=== PATIENT | female | born 1990 | race Two or more races ===

== ENCOUNTER 2016-03-28 19:05 | Emergency (ER) | payer MEDICAID, OTHER ==
[~2016-03-28] VITALS: Ht 154.9 cm; Wt 79.4 kg
[~2016-03-28 19:05] MED LIST: NOR10T; ONDA4TAB8
[2016-03-28 19:25] VITALS: BP 120/79
== END 2016-03-28 21:20 | disposition home or self-care (01) ==
LOC: ER 19:11
DX: J40 Bronchitis, not specified as acute or chronic (principal); R07.0 Pain in throat

== ENCOUNTER 2024-09-01 06:32 | Inpatient (IN) | payer MEDICAID, SELFPAY ==
[2024-09-01] VITALS (16 sets, daily range): BP systolic 110–140; BP diastolic 57–92; PULSE 74–92; RESP 16–18; TEMP 97.9–98.3; O2SAT 95–98
[~2024-09-01] VITALS: Ht 162.6 cm; Wt 95.3 kg
[~2024-09-01 06:32] MED LIST changes: +ONDA-101; -ONDA4TAB8
[2024-09-01] MEDS ORDERED: hydrALAZINE HCL 20 MG/ML VL IV PRN (06:45)
[2024-09-01] MEDS: hydrALAZINE HCL 20 MG/ML VL ONE (07:10)
[2024-09-01] MEDS ORDERED: LIDOCAINE 2%HCL (LOCAL ANESTH.) INJ 20ML MDV IJ PRN (07:15)
[2024-09-01] MEDS ORDERED: MORPHINE SULFATE INJ 2 MG/ml SYRG IV PRN (07:15)
[2024-09-01] MEDS ORDERED: NITROGLYCERIN 0.4 MG SL TAB SL PRN (07:15)
[2024-09-01] MEDS ORDERED: LACTATED RINGER'S 1,000 ML IV SCH (07:15)
[2024-09-01] MEDS: MAGNESIUM SULFATE 40MG/ML 1,000 ML IV ONE (07:30)
[2024-09-01] MEDS ORDERED: TERBUTALINE SULFATE 1 MG/ML 1ML VIAL SC PRN (07:45)
[2024-09-01 08:07] LABS: Hematocrit 37.6 % (36.0-46.0); Hemoglobin 12.9 g/dL (12.2-16.2); Mean Corpuscular Hemoglobin 27.5 pg (28.0-32.0); Mean Corpuscular Volume 80.5 fL (80.0-100.0); Nucleated Red Blood Cells % 0.0 %
[2024-09-01 08:14] LABS: Albumin 3.7 g/dL (3.2-4.8); Anion Gap 14 (5-15); BUN/Creatinine Ratio 14.7 (10.0-20.0); Blood Urea Nitrogen 11 mg/dL (9-23); Calcium 9.2 mg/dL (8.7-10.4); Glucose 90 mg/dL (74-106); Potassium 3.6 mmol/L (3.5-5.1); Sodium 138 mmol/L (136-145); Total Protein 6.5 g/dL (5.7-8.2)
[2024-09-01] MEDS: PENICILLIN G POT 5MIL/D5 50ML 50 ML IV ONE ×2 (08:14→12:49)
[2024-09-01 08:15] LABS: Bilirubin, Total 0.4 mg/dL (0.2-1.0)
--- NOTE | 2024-09-01 08:17 | DVH ---
CLINICAL HISTORY: contractions COMPARISON: None TECHNIQUE: biophysical profile was performed. Transabdominal sonographic images of the fetus we re obtained. FINDINGS: The fetus is in cephalic position. heart rate measures 124 BPM. Amniotic fluid index measures 9 cm. The placenta is posterior in position without visualized evidence for previa or abrupt ion demonstrated. BPP profile is an overall score of 8/8, with 2/2 points for breathing, with at least one episode of breathing over a 30 second duration during a 30 minute observation, 2/2 points for m ovements, with 3 or more discrete body or limb movements, 2/2 points for tone, with one or more episodes of extremity extension with return to flexion, or opening and closing of hand, and 2/ 2 points for amniotic fluid, with at least 1 pocket of amniotic fluid that measures 2 cm in 2 perpend icular planes. IMPRESSION: BPP score of 8/8.
[2024-09-01 08:18] LABS: Alanine Aminotransferase < 9 U/L (7-40); Alkaline Phosphatase 171 U/L (46-116); Carbon Dioxide 17 mmol/L (20-31); Chloride 107 mmol/L (98-107)
[2024-09-01 08:25] LABS: INR 0.86 (0.9-1.15); Partial Thromboplastin Time 27.3 SEC (24.5-34.5); Prothrombin Time 9.3 sec (9.3-11.8)
[2024-09-01 08:26] LABS: Urine Protein, UAD 3+ (Negative)
[2024-09-01 08:33] LABS: Uric Acid 7.4 mg/dL (3.1-7.8)
[2024-09-01 08:40] LABS: Amphetamine Screen, Urine Neg (NEGATIVE); Barbiturate Scree,Urine Neg (NEGATIVE); Benzodiazephine Screen, Urine Neg (NEGATIVE); Cannabinoid Screen, Urine Neg (NEGATIVE); Cocaine Screen, Urine Pos (NEGATIVE); Opiate Scree,Urine Neg (NEGATIVE); Phencyclidine Screen, Urine Neg (NEGATIVE); Protein, Urine 718.3 mg/dL (1-14)
--- NOTE | 2024-09-01 08:59 | LDN2 ---
Labor and Delivery Note Date 09/01/24 Age 34 2 Para 2 EDC 8-8 EGA 37wks Diagnosis chtn with superimposed preeclampsia,ama,37wks,limited care Vaginal Delivery: VTX Placenta: Spontaneous Sex: Female Apgars 8-9 Nuchal Cord Transected: No Amniotic Fluid: Clear Anesthesia xylocaine Episiotomy: No Extension: Yes (2nd degperineal lac ) Repaired with 2-0 chromic EBL 300ml Labs Blood Bank 09/01/24 07:25: Blood Type A POSITIVE Complications none Conditions stable Comments/Significant Med Brant spec exam no cxal lac Visit Coding OBGYN Date of Service: Sep 01, 2024 Billing Provider: BRANDEE DOVER DO HOTEL ROOM ATTENDANT Common Visit Codes: [id number] OBS CARE (HIGH) HOTEL ROOM ATTENDANT Procedure Codes: 46738-26- NON-STRESS TEST, 24215-BLH DELIVERY ONLY BRANDEE DOVER DO Sep 01, 2024 08:59
[2024-09-01] MEDS: LABETALOL HCL 200 MG TAB PO SCH ×2 (09:47→21:38)
[2024-09-01] MEDS ORDERED: ONDANSETRON HCL 4 MG/2 ML VIAL IV PRN (11:30)
[2024-09-01] MEDS: MAGNESIUM SULFATE 100 ML IV ONE (11:43)
[2024-09-01] MEDS: hydrALAZINE HCL 20 MG/ML VL IV PRN (11:48)
[2024-09-01] MEDS: LACT. RINGERS/OXYTOCIN 20UNITS 500 ML IV ONE ×2 (11:51→11:52)
[2024-09-01] MEDS: PENICILLIN G POTASSIUM 2,500,000 UNITS in D5W 5% 50 ML IV SCH (12:15)
[2024-09-01] MEDS: WITCH HAZEL-GLYCERIN PAD TOP PRN (13:53)
[2024-09-01] MEDS: DERMOPLAST 60ML BOTTLE TOP PRN (13:53)
[2024-09-01] MEDS: PHISODERM TOP SOLN 240ML BTL TOP PRN (13:53)
[2024-09-01] MEDS: ACETAMINOPHEN 325 MG TAB PO PRN (16:25)
[2024-09-01] MEDS: DOCUSATE SOD 100 MG CAP PO SCH (21:37)
[2024-09-01] MEDS: IBUPROFEN 600 MG TAB PO PRN (23:26)
[2024-09-02 03:15] VITALS: BP 121/65; PULSE 77; RESP 16; TEMP 97.7; O2SAT 96
--- NOTE | 2024-09-02 05:57 | DVHHP ---
ADMIT DATE: 09/01/2024 CHIEF COMPLAINT: Labor pain. HISTORY OF PRESENT ILLNESS: The patient is a 34-year-old 2 para 1 with EDC 09/19, estimated gestational age of 37 weeks, admitted for active labor. The patient was placed on labetalol for gestational hypertension by ____. We have no records. The patient presented at 8 cm with blood pressure of 200/100. The patient was started on ____. PAST MEDICAL HISTORY: Gestational hypertension. PAST SURGICAL HISTORY: None. SOCIAL HISTORY: None. FAMILY HISTORY: None. OBSTETRICAL/GYNECOLOGICAL HISTORY: One normal vaginal delivery. REVIEW OF SYSTEMS: Consistent with HPI. PHYSICAL EXAMINATION: VITAL SIGNS: Stable, afebrile. HEENT: Within normal limits. CARDIOVASCULAR: Regular rate and rhythm. LUNGS: Clear to auscultation. BREASTS: Symmetrical, no masses. ABDOMEN: Soft, gravid. PELVIC: 8, 90%, 0. EXTREMITIES: No clubbing, cyanosis, edema. IMPRESSION: * Active labor. * Gestational hypertension with superimposed preeclampsia. * Advanced maternal age. PLAN: Expectant vaginal delivery. Informed consent obtained. DO APRIL Calle/FIONA/VIRIDIANA TID: [id number] RECEIPT: [id number]
[2024-09-02 06:35] VITALS: BP 130/75; PULSE 82; RESP 16; TEMP 97.6; O2SAT 95
[2024-09-02 11:20] VITALS: BP 131/63; PULSE 83; RESP 16; TEMP 97.9; O2SAT 95
[2024-09-02 15:30] VITALS: BP 134/86; PULSE 97; RESP 18; TEMP 98.2; O2SAT 97
--- NOTE | 2024-09-02 16:45 | DVHPN2 ---
Progress Note Date Seen: Sep 02, 2024 Subjective S: bleeding is less, eating food without issues, denies lightheaded/dizziness, pain well controlled with oral medications, no concerns with urinating, passing flatus, no BM yet, ambulating well, formula feeding only vital signs Vital Sign Date Time Temp Pulse Resp B/P (MAP) Pulse Ox O2 Delivery O2 Flow Rate FiO2 09/02/24 15:30 98.2 97 18 134/86 (102) 97 98.2 09/02/24 06:35 Room Air Total Intake and Output 09/01/24 09/01/24 09/02/24 15:00 23:00 07:00 Output Total 550 ml 800 ml 250 ml Balance -550 ml -800 ml -250 ml medications Current Medications Medications Dose Ordered Sig/Jeffrey Route Start Time Stop Time Status Last Admin Dose Admin Hydralazine HCl 5 mg Q20MP PRN IV 09/01/24 06:45 Hydralazine HCl 10 mg Q20MP PRN IV 09/01/24 06:45 09/01/24 11:48 10 MG Lactated Ringer's 1,000 ml @ 125 mls/hr Q8H IV 09/01/24 07:15 Witch Ekaterina 1 pad PRN PRN TOP 09/01/24 07:15 09/01/24 13:53 1 PAD Sodium Lauryl Sulfate 240 ml PRN PRN TOP 09/01/24 07:15 09/01/24 13:53 240 ML Benzocaine 1 applic PRN PRN TOP 09/01/24 07:15 09/01/24 13:53 1 APPLIC Lidocaine HCl 20 ml ONCE PRN IJ 09/01/24 07:15 Nitroglycerin 0.4 mg Q5MINP PRN SL 09/01/24 07:15 Cancel Morphine Sulfate 2 mg Q30M PRN IV 09/01/24 07:15 Cancel Terbutaline Sulfate 0.25 mg ONCE PRN SC 09/01/24 07:45 Cancel Ibuprofen 600 mg Q6HP PRN PO 09/01/24 11:30 09/01/24 23:26 600 MG Acetaminophen 650 mg Q4HP PRN PO 09/01/24 11:30 09/01/24 16:25 650 MG Ondansetron HCl 4 mg Q4HP PRN IV 09/01/24 11:30 Docusate Sodium 200 mg HS PO 09/01/24 22:00 09/01/24 21:37 200 MG Labetalol HCl 100 mg Q12HR PO 09/01/24 22:00 09/02/24 10:16 100 MG laboratory and microbiology Laboratory Tests 09/01/24 07:25 Test 09/01/24 07:25 Range/Units Serum Glucose 90 74-106 mg/dL Objective O: VSS Chest: heart sounds normal and lung sounds clear bilaterally Abd: soft, non-tender, fundus at U/firm/midline, active bowel sounds, no rebound or guarding Perineum: sutures intact, edges well approximated, no erythema/edema noted Ext: Non-tender, 1+ BLE edema, 2+ BLE DTRs Lochia: minimal SW consult complete Laboratory Tests Test 09/01/24 07:25 09/01/24 08:13 09/01/24 10:46 09/01/24 11:15 Range/Units White Blood Count 18.4 H 4.4-10.8 10^3/uL Red Blood Count 4.67 4.0-5.20 10^6/uL Hemoglobin 12.9 12.2-16.2 g/dL Hematocrit 37.6 36.0-46.0 % Mean Corpuscular Volume 80.5 80.0-100.0 fL Mean Corpuscular Hemoglobin 27.5 L 28.0-32.0 pg Mean Corpuscular Hemoglobin Concent 34.1 32.0-36.0 g/dL Red Cell Distribution Width 14.6 H 11.8-14.3 % Platelet Count 377 140-450 10^3/uL Mean Platelet Volume 9.7 6.9-10.8 fL Neutrophils (%) (Auto) 75.4 37.0-80.0 % Lymphocytes (%) (Auto) 16.4 10.0-50.0 % Monocytes (%) (Auto) 6.9 0.0-12.0 % Eosinophils (%) (Auto) 0.2 0.0-7.0 % Basophils (%) (Auto) 1.1 0.0-2.0 % Neutrophils # (Auto) 13.9 H 1.6-8.6 10 ^3/uL Lymphocytes # (Auto) 3.0 0.4-5.4 10 ^3/uL Monocytes # (Auto) 1.3 0-1.3 10 ^3/uL Eosinophils # (Auto) 0 0-0.8 10 ^3/uL Basophils # (Auto) 0.2 0-0.2 10 ^3/uL Nucleated Red Blood Cells 0.0 % Prothrombin Time 9.3 9.3-11.8 sec Prothrombin Time INR 0.86 L 0.9-1.15 Activated Partial Thromboplast Time 27.3 24.5-34.5 SEC Sodium Level 138 136-145 mmol/L Potassium Level 3.6 3.5-5.1 mmol/L Chloride Level 107 98-107 mmol/L Carbon Dioxide Level 17 L 20-31 mmol/L Anion Gap 14 5-15 Blood Urea Nitrogen 11 9-23 mg/dL Creatinine 0.75 0.550-1.02 mg/dL Glomerular Filtration Rate Calc 106 >90 mL/min BUN/Creatinine Ratio 14.7 10.0-20.0 Serum Glucose 90 74-106 mg/dL Uric Acid 7.4 3.1-7.8 mg/dL Calcium Level 9.2 8.7-10.4 mg/dL Total Bilirubin 0.4 0.2-1.0 mg/dL Aspartate Amino Transferase (AST) 27 13-40 U/L Alanine Aminotransferase (ALT) < 9 7-40 U/L Alkaline Phosphatase 171 H 46-116 U/L Total Protein 6.5 5.7-8.2 g/dL Albumin 3.7 3.2-4.8 g/dL Treponema pallidum Antibody Non-reactive Negative Hepatitis C Antibody Negative Negative Urine Color Yellow Yellow Urine Clarity Clear Clear Urine pH 6.0 5.0-9.0 Urine Specific [place] 1.025 1.001-1.035 Urine Protein 3+ H Negative Urine Ketones Negative Negative Urine Blood 1+ H Negative /uL Urine Nitrite Negative Negative Urine Bilirubin Negative Negative Urine Urobilinogen Normal Negative mg/dL Urine Leukocyte Esterase Negative Negative /uL Urine RBC 1 0 - 4 /hpf Urine Microscopic WBC 2 0-5 /HPF Urine Squamous Epithelial Cells Few <5 /hpf Urine Bacteria None seen None Seen /hpf Urine Hyaline Casts Few 0 - 2 /lpf Urine Mucus Few None Seen Urine Creatinine 136.06 H 30.0-125.0 mg/dL Urine Protein/Creatinine Ratio 5.28 Urine Glucose Normal Normal mg/dL Urine Total Protein 718.3 H 1-14 mg/dL Urine Opiates Screen Neg NEGATIVE Urine Fentanyl Screen Neg NEGATIVE Urine Barbiturates Screen Neg NEGATIVE Urine Phencyclidine Screen Neg NEGATIVE Urine Amphetamines Screen Neg NEGATIVE Urine Benzodiazepines Screen Neg NEGATIVE Urine Cocaine Screen Pos NEGATIVE Urine Cannabinoids Screen Neg NEGATIVE Chlamydia trachomatis (JANIS) Pending Neisseria gonorrhoeae (JANIS) Pending Magnesium Level 3.2 H 1.6-2.6 mg/dL Test 09/01/24 11:45 09/01/24 18:10 09/01/24 23:06 09/02/24 16:55 Range/Units Magnesium Level 4.5 #*H 5.9 #*H 4.5 #*H 1.6-2.6 mg/dL White Blood Count 17.9 H 4.4-10.8 10^3/uL Red Blood Count 3.44 L 4.0-5.20 10^6/uL Hemoglobin 9.5 #L 12.2-16.2 g/dL Hematocrit 28.3 #L 36.0-46.0 % Mean Corpuscular Volume 82.3 80.0-100.0 fL Mean Corpuscular Hemoglobin 27.6 L 28.0-32.0 pg Mean Corpuscular Hemoglobin Concent 33.5 32.0-36.0 g/dL Red Cell Distribution Width 15.1 H 11.8-14.3 % Platelet Count 295 140-450 10^3/uL Mean Platelet Volume 9.0 6.9-10.8 fL Neutrophils (%) (Auto) 65.7 37.0-80.0 % Lymphocytes (%) (Auto) 25.6 10.0-50.0 % Monocytes (%) (Auto) 7.6 0.0-12.0 % Eosinophils (%) (Auto) 0.9 0.0-7.0 % Basophils (%) (Auto) 0.2 0.0-2.0 % Neutrophils # (Auto) 11.7 H 1.6-8.6 10 ^3/uL Lymphocytes # (Auto) 4.6 0.4-5.4 10 ^3/uL Monocytes # (Auto) 1.4 H 0-1.3 10 ^3/uL Eosinophils # (Auto) 0.2 0-0.8 10 ^3/uL Basophils # (Auto) 0 0-0.2 10 ^3/uL Nucleated Red Blood Cells 0.1 % Vital Signs Date Time Temp Pulse Resp B/P (MAP) Pulse Ox O2 Delivery O2 Flow Rate FiO2 09/02/24 15:30 98.2 97 18 134/86 (102) 97 98.2 09/02/24 06:35 Room Air Problems(with codes): (1) Cocaine use (2) (normal spontaneous vaginal delivery) (3) Second degree perineal laceration during delivery (4) Pre-eclampsia superimposed on chronic hypertension Assessment/Plan A: 34yo now PPD#1 s/p Second degree perineal laceration Chronic HTN with superimposed preeclampsia Cocaine use P: Continue with routine PP care Dr. Phillips consulted, wants pt to continue taking labetalol 100mg PO BID at home too for chronic HTN. Rx sent. Plan discussed with: Patient Visit Coding OBGYN Date of Service: Sep 02, 2024 Billing Provider: GRAHAM MCKEE CNM STAMP MAKER Common Visit Codes: [id number] INP/OBS CARE(HIGH) GRAHAM MCKEE CNM Sep 02, 2024 16:45
[2024-09-02 17:44] LABS: Hematocrit 28.3 % (36.0-46.0); Hemoglobin 9.5 g/dL (12.2-16.2); Mean Corpuscular Hemoglobin 27.6 pg (28.0-32.0); Mean Corpuscular Volume 82.3 fL (80.0-100.0); Nucleated Red Blood Cells % 0.1 %
[2024-09-02] MEDS ORDERED: LABE200T10 PO (18:11)
[2024-09-02] MEDS ORDERED: FER325T PO (18:11)
[2024-09-02] MEDS ORDERED: DOCU-265 PO (18:11)
[2024-09-02] MEDS ORDERED: IBU600T PO (18:11)
[2024-09-02 19:17] VITALS: BP 157/75; PULSE 99; RESP 17; TEMP 98.1; O2SAT 99
[2024-09-02] MEDS: LABETALOL HCL 200 MG TAB PO SCH (21:15)
[2024-09-02 23:00] VITALS: BP 134/77; PULSE 82; RESP 16; TEMP 97.6; O2SAT 97
--- NOTE | 2024-09-03 00:18 | DVHDS2 ---
Obstetrics Discharge Summary Obstetrics Discharge Summary Date of Admission: Sep 01, 2024 Date of Discharge: Sep 03, 2024 Reason For Admission: Onset of Labor Procedures: NST, Ultrasound, Mgmt of Obstetrics Compli (cocaine use in and CHTN superimposed preeclampsia) Intrapartum Procedures: Spontaneous vaginal deliv Procedures: Hct/date: (09/02/24), Hgb/date: (09/02/24) Operative Complicat: Laceration (second degree perineal) Discharge Diagnosis: Term -Delivered, Preeclampsia (superimposed with chronic HTN) Discharge Information: Activity (as tolerated, no heavy lifting and nothing in the vagina for 6 weeks), Diet (Routine), Medications (Rx sent), Instructions (Routine), Discharge to (Home), Accompanied by (family), Discarge date (09/03/24) Visit Coding OBGYN Date of Service: Sep 03, 2024 Billing Provider: GRAHAM MCKEE CNM HOME CARE PROVIDER Common Visit Codes: 62671-ABL/OBS DISCH DAY <30MIN GRAHAM MCKEE CNM Sep 03, 2024 00:18
--- NOTE | 2024-09-03 00:18 | DVHPN2 ---
Progress Note Date Seen: Sep 03, 2024 Subjective S: bleeding is less, eating food without issues, denies lightheaded/dizziness, pain well controlled with oral medications, no concerns with urinating, passing flatus, no BM yet, ambulating well, formula feeding only vital signs Vital Sign Date Time Temp Pulse Resp B/P (MAP) Pulse Ox O2 Delivery O2 Flow Rate FiO2 09/02/24 21:15 96 165/93 09/02/24 19:17 98.1 17 99 98.1 09/02/24 06:35 Room Air Total Intake and Output 09/02/24 09/02/24 09/03/24 15:00 23:00 07:00 Output Total 800 ml 300 ml Balance -800 ml -300 ml medications Current Medications Medications Dose Ordered Sig/Jeffrey Route Start Time Stop Time Status Last Admin Dose Admin Hydralazine HCl 5 mg Q20MP PRN IV 09/01/24 06:45 Hydralazine HCl 10 mg Q20MP PRN IV 09/01/24 06:45 09/01/24 11:48 10 MG Lactated Ringer's 1,000 ml @ 125 mls/hr Q8H IV 09/01/24 07:15 Witch Ekaterina 1 pad PRN PRN TOP 09/01/24 07:15 09/01/24 13:53 1 PAD Sodium Lauryl Sulfate 240 ml PRN PRN TOP 09/01/24 07:15 09/01/24 13:53 240 ML Benzocaine 1 applic PRN PRN TOP 09/01/24 07:15 09/01/24 13:53 1 APPLIC Lidocaine HCl 20 ml ONCE PRN IJ 09/01/24 07:15 Nitroglycerin 0.4 mg Q5MINP PRN SL 09/01/24 07:15 Cancel Morphine Sulfate 2 mg Q30M PRN IV 09/01/24 07:15 Cancel Terbutaline Sulfate 0.25 mg ONCE PRN SC 09/01/24 07:45 Cancel Ibuprofen 600 mg Q6HP PRN PO 09/01/24 11:30 09/01/24 23:26 600 MG Acetaminophen 650 mg Q4HP PRN PO 09/01/24 11:30 09/02/24 21:51 650 MG Ondansetron HCl 4 mg Q4HP PRN IV 09/01/24 11:30 Docusate Sodium 200 mg HS PO 09/01/24 22:00 09/01/24 21:37 200 MG Labetalol HCl 300 mg Q12H PO 09/02/24 21:00 09/02/24 21:15 300 MG laboratory and microbiology Laboratory Tests 09/02/24 16:55 09/01/24 07:25 Test 09/01/24 07:25 Range/Units Serum Glucose 90 74-106 mg/dL Objective O: VSS Chest: heart sounds normal and lung sounds clear bilaterally Abd: soft, non-tender, fundus at U/firm/midline, active bowel sounds, no rebound or guarding Perineum: sutures intact, edges well approximated, no erythema/edema noted Ext: Non-tender, No edema, 2+ BLE DTRs Lochia: minimal See lab results SW consult complete Problems(with codes): (1) Pre-eclampsia superimposed on chronic hypertension (2) Precipitous drop in hematocrit (3) (normal spontaneous vaginal delivery) (4) Second degree perineal laceration during delivery (5) Cocaine use Assessment/Plan A: 34yo now PPD#2 s/p Second degree perineal laceration Cocaine use Anemia Rh+ Rubella Immune Formula feeding P: D/C home today Rx sent to pharmacy precautions and preeclampsia warning signs reviewed F/U with [facility] office in 2 weeks Plan discussed with: Patient Visit Coding OBGYN Date of Service: Sep 03, 2024 Billing Provider: GRAHAM MCKEE CNM LEGAL ASSISTANT Common Visit Codes: [id number] INP/OBS CARE(HIGH) GRAHAM MCKEE CNM Sep 03, 2024 00:18
[2024-09-03 03:09] VITALS: BP 146/89; PULSE 85; RESP 16; TEMP 97.7; O2SAT 96
[2024-09-03 06:07] LABS: Chlamydia Trachomatis, NAA Negative (Negative); Neisseria gonorrhoeae, NAA Negative (Negative)
[2024-09-03 07:00] VITALS: BP 185/84; PULSE 90; RESP 16; TEMP 98.8; O2SAT 96
[2024-09-03] MEDS ORDERED: LABE300T5 PO (09:32)
[2024-09-03 11:00] VITALS: BP 157/77; PULSE 82; RESP 16; TEMP 98.6; O2SAT 96
== END 2024-09-03 15:17 | disposition home or self-care (01) | DRG 806 ==
LOC: LDRP 06:32 → OBSVTOIN 07:02 → LDRP 07:04
PROVIDERS: ADMIT Obstetrics & Gynecology; ATTEND Obstetrics & Gynecology
PROC: 10E0XZZ Delivery of Products of Conception, External Approach (ICD-10-PCS; principal; 2024-09-01)
PROC: 0KQM0ZZ Repair Perineum Muscle, Open Approach (ICD-10-PCS; 2024-09-01)
DX: O11.4 Pre-existing hypertension with pre-eclampsia, complicating childbirth (principal); R71.0 Precipitous drop in hematocrit; Z37.0 Single live birth; Z3A.37 37 weeks gestation of pregnancy; O70.1 Second degree perineal laceration during delivery; F14.90 Cocaine use, unspecified, uncomplicated; O99.324 Drug use complicating childbirth
CPT/HCPCS: 36415; 59409; 76819; 80053; 80307; 81001; 82570; 83735; 84156; 84550; 85025; 85610; 85730; 86780; 86803; 86850; 86900; 86901; 94760; 94762; 96360; 96361; 96365; 96366; 96374; 96375; G0378; J2540; J2590; J7060

== ENCOUNTER 2024-09-05 09:48 | Inpatient (IN) | payer SELFPAY ==
[~2024-09-05] VITALS: Ht 154.9 cm; Wt 98.0 kg
[~2024-09-05 09:48] MED LIST changes: +DOCU-265 PO; +FER325T PO; +IBU600T PO; +LABE300T5 PO; -NOR10T; -ONDA-101
--- NOTE | 2024-09-05 10:37 | ED.PDOC ---
SOB-HPI HPI Comments This is a 34 year old female presenting to the ED with chief complaint of SOB. Patient reports that she had just delivered her on Sunday, but since then she has been experiencing SOB. Patient relays that her SOB worsened yesterday. Patient states she has history of preeclampsia and is . Patient denies any chest pain, cough, fever, chills, dizziness, or N/V. Chief Complaint: Shortness of Breath Time Seen by MD: 10:34 Primary Care Provider: NONE Reviewed notes: Nurses Notes, Medications, Allergies Information Source: Patient Mode of Arrival: Ambulatory Severity: Moderate Timing: Days Duration: Since onset Context: At Rest PE Risk Factors: None History of: None Prehospital treatment: None Modifying Factors: Nothing Associated Signs and Symptoms: None Past Medical History PAST MEDICAL HISTORY: Denies Surgical History: Denies all surgeries ICE BAG ASSEMBLER History: No Pertinent ICE BAG ASSEMBLER History 2 Para 2 Family History Family History: Reviewed,noncontributory to illness Social History Smoker: Non-Smoker Alcohol: Denies ETOH Use Drugs: Denies Drug Use Lives In: Home Constitutional: denies: chills, diaphoresis, fatigue, fever, malaise, sweats, weakness, others EENTM: denies: blurred vision, double vision, ear bleeding, ear discharge, ear drainage, ear pain, ear ringing, eye pain, eye redness, hearing loss, mouth pain, mouth swelling, nasal discharge, nose bleeding, nose congestion, nose pain, photophobia, tearing, throat pain, throat swelling, voice changes, others Respiratory: reports: shortness of breath; denies: cough, hemoptysis, orthopnea, SOB at rest, SOB with excertion, stridor, wheezing, others Cardiovascular: denies: chest pain, dizzy spells, diaphoresis, Dyspnea on e xertion, edema, irregular heart beat, left arm pain, lightheadedness, palpitations, PND, syncope, others Gastrointestinal: denies: abdomen distended, abdominal pain, blood streaked bowels, constipated, diarrhea, dysphagia, difficulty swallowing, hematemesis, melena, nausea, poor appetite, poor fluid intake, rectal bleeding, rectal pain, vomiting, others Genitourinary: denies: abnormal vagina bleeding, burning, dyspareunia, dysuria, flank pain, frequency, hematuria, incontinence, pain, , vagina discharge, urgency, others Neurological: denies: dizziness, fainting, headache, left sided numbness, left sided weakness, numbness, paresthesia, pre-existing deficit, right sided numbness, right sided weakness, seizure, speech problems, tingling, tremors, weakness, others Musculoskeletal: denies: back pain, gout, joint pain, joint swelling, muscle pain, muscle stiffness, neck pain, others Integumetry: denies: bruises, change in color, change in hair/nails, dryness, laceration, lesions, lumps, rash, wounds, others Allergic/Immunocompromised: denies: Difficulty Healing, Frequent Infections, Hives, Itching, others Hematologic/Lymphatic: denies: anemia, blood clots, easy bleeding, easy bruising, swollen glands, others Endocrine: denies: excessive hunger, excessive sweating, excessive thirst, excessive urination, flushing, intolerance to cold, intolerance to heat, unexplained weight gain, unexplained weight loss, others Psychiatric: denies: anxiety, bipolar disorder, depression, hopeless, panic disorder, schizophrenia, sleepless, suicidal, others All Other Systems: Reviewed and Negative Physical Exam General Appearance: Moderate Distress, Normal HEENT: Normal ENT Inspection, Pharynx Normal, TMs Normal Neck: Full Range of Motion, Non-Tender, Normal, Normal Inspection Respiratory: Chest Non-Tender, No Accessory Muscle Use, Other (Coarse breath sounds) Cardiovascular: No Edema, No JVD, No Murmur, No Gallop, Normal Peripheral Pulses, Regular Rate/Rhythm Breast Exam: Deferred Gastrointestinal: No Organomegaly, Non Tender, No Pulsatile Mass, Normal Bowel Sounds, Soft Genitalia: Deferred Pelvic: Deferred Rectal: Deferred Extremities: No calf tenderness, Normal capillary refill, Normal inspection, Normal range of motion, Non-tender, No pedal edema Musculoskeletal : Apperance: Normal Neurologic: Alert, inpatient pharmacist II-XII nml as Tested, No Motor Deficits, Normal Affect, Normal Mood, No Sensory Deficits Cerebellar Function: NOT DONE Reflexes: NOT DONE Skin: Dry, Normal Color, Warm Peripheral Pulses: 3+ Radial (R), 3+ Radial (L) Lymphatic: No Adenopathy Was a procedure done? Was a procedure done?: No Differential Dx Differential Diagnosis: Anxiety, Asthma, Bronchitis, CHF, COPD, Pneumonia, Pulmonary Embolism, Respiratory Distress X-Ray, Labs, Meds, VS Vital Signs Date Time Temp Pulse Resp B/P (MAP) Pulse Ox O2 Delivery O2 Flow Rate FiO2 09/05/24 10:51 97 173/95 09/05/24 10:50 18 96 Nasal Cannula* 2 28 09/05/24 10:45 97.9 96 29 173/95 (121) 95 97.9 09/05/24 10:07 98.2 100 16 164/110 (128) 99 98.2 Lab Test 09/05/24 10:33 Range/Units White Blood Count Pending Red Blood Count Pending Hemoglobin Pending Hematocrit Pending Mean Corpuscular Volume Pending Mean Corpuscular Hemoglobin Pending Mean Corpuscular Hemoglobin Concent Pending Red Cell Distribution Width Pending Platelet Count Pending Mean Platelet Volume Pending Neutrophils (%) (Auto) Pending Lymphocytes (%) (Auto) Pending Monocytes (%) (Auto) Pending Basophils (%) (Auto) Pending Neutrophils # (Auto) Pending Lymphocytes # (Auto) Pending Monocytes # (Auto) Pending D-Dimer, Quantitative Pending Sodium Level Pending Potassium Level Pending Chloride Level Pending Carbon Dioxide Level Pending Anion Gap Pending Blood Urea Nitrogen Pending Creatinine Pending Glomerular Filtration Rate Calc Pending BUN/Creatinine Ratio Pending Serum Glucose Pending Calcium Level Pending Current Medications Medications (Trade) Dose Ordered Sig/Jeffrey Route Start Time Stop Time Status Last Admin Ceftriaxone Sodium 50 ml @ 100 mls/hr ONCE ONCE IV 09/05/24 10:30 09/05/24 10:59 DC 09/05/24 10:50 Albuterol (Ventolin Medneb) 5 mg ONCE ONCE NEB 09/05/24 10:30 09/05/24 10:33 DC 09/05/24 10:49 Ipratropium [place] (Atrovent Medneb) 0.5 mg ONCE ONCE NEB 09/05/24 10:30 09/05/24 10:33 DC 09/05/24 10:49 Labetalol HCl (Labetalol HCl) 10 mg ONCE ONCE IV 09/05/24 10:45 09/05/24 10:46 DC 09/05/24 10:51 Patient alert. Complaining of shortness a breath. Chest x-ray reviewed does show pneumonia. Vitals stable. Was given breathing treatment. Placed on oxygen. Was given Rocephin. Was given azithromycin. Blood pressure elevated. Was given labetalol. Recently gave . Explained to the patient. Continue monitoring. Chest x-ray reviewed does show CHF with pneumonia. 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 Time of 1ST Reevaluation: 11:34 Reevaluation 1ST: Unchanged Patient Education/Counseling: Diagnosis, Treatment Family Education/Counseling: Diagnosis, Treatment SEPSIS Sepsis Screen Date sepsis recognized/suspect: Sep 05, 2024 Time Sepsis recognized/suspect: 953 Recent Procedure: No On Antibiotic Therapy: No Respiratory Rate >20: No Heart Rate >90: No Temp<36 C (96.8 F) or >38.3 C: No SBP <90 or MAP <65 mmHG: No New Acute Mental Status Change: No Is the patient on CPAP, BIPAP,: No Physician Orders Complete Blood Count (09/05/24 10:21) Chest Portable (09/05/24 10:21) Urinalysis (09/05/24 10:21) Basic Metabolic Panel (09/05/24 10:21) Azithromycin 500mg/ 250ml (Zithromax 50 (09/05/24 10:30) D-Dimer (09/05/24 10:30) Furosemide Injection (Lasix Injection) (09/05/24 11:30) Vital Signs Date Time Temp Pulse Resp B/P (MAP) Pulse Ox O2 Delivery O2 Flow Rate FiO2 09/05/24 10:51 97 173/95 09/05/24 10:50 18 96 Nasal Cannula* 2 28 09/05/24 10:45 97.9 96 29 173/95 (121) 95 97.9 09/05/24 10:07 98.2 100 16 164/110 (128) 99 98.2 Laboratory Tests Test 09/05/24 10:33 White Blood Count Pending Medications Medications Dose Ordered Sig/Jeffrey Route Start Time Stop Time Status Last Admin Dose Admin Albuterol 5 mg ONCE ONCE NEB 09/05/24 10:30 09/05/24 10:33 DC 09/05/24 10:49 Ceftriaxone Sodium 50 ml @ 100 mls/hr ONCE ONCE IV 09/05/24 10:30 09/05/24 10:59 DC 09/05/24 10:50 Ipratropium [place] 0.5 mg ONCE ONCE NEB 09/05/24 10:30 09/05/24 10:33 DC 09/05/24 10:49 Labetalol HCl 10 mg ONCE ONCE IV 09/05/24 10:45 09/05/24 10:46 DC 09/05/24 10:51 Departure 1 Departure Time of Disposition: 11:16 Impression: Primary Impression: Acute respiratory distress Additional Impressions: Pneumonia Qualified Codes: J18.9 - Pneumonia, unspecified organism CHF (congestive heart failure) Qualified Codes: I50.9 - Heart failure, unspecified Disposition: 09 ADMITTED INPATIENT Admit to: Med Surg Condition: Guarded Critical Care Note Critical Care Time?: Yes (90 min-critical care time only) Stability Stability form required: No Heart Score Heart Score: Heart Score Response (Comments) Value History N/A 0 EKG N/A 0 Age N/A 0 Risk Factors N/A 0 Troponin N/A 0 Total 0 I personally scribed for ABBY DA SILVA MD ([email or web address]) on 09/05/24 at 10:37. Electronically submitted by Markos Torres ([email or web address]). ABBY DA SILVA MD Sep 05, 2024 10:37
[2024-09-05 10:45] VITALS: PULSE 96; RESP 28; O2SAT 95
[2024-09-05] MEDS: ALBUTEROL SULF 2.5 MG/0.5ML(0.5%) NEB SOLN NEB ONE (10:49)
[2024-09-05] MEDS: IPRATROPIUM BROM 0.5 MG/2.5ML INH SOL NEB ONE (10:49)
--- NOTE | 2024-09-05 10:49 | DVH ---
INDICATION: sob TECHNIQUE: Frontal view of the chest. COMPARISON: None FINDINGS: Cardiomegaly with CHF. There is no evidence of pleural disease. The lungs are clear. The bony str uctures of the chest are intact without fracture. IMPRESSION: 1. Cardiomegaly with CHF.
[2024-09-05] MEDS: cefTRIAXone 1GM/50ML D5W 50 ML IV ONE ×2 (10:50→17:45)
[2024-09-05] MEDS: LABETALOL HCL 20 MG/4 ML VL IV ONE ×2 (10:51→16:45)
[2024-09-05 11:26] LABS: Hematocrit 28.4 % (36.0-46.0); Hemoglobin 9.6 g/dL (12.2-16.2); Mean Corpuscular Hemoglobin 27.6 pg (28.0-32.0); Mean Corpuscular Volume 81.8 fL (80.0-100.0); Nucleated Red Blood Cells % 0.0 %
[2024-09-05 11:34] LABS: Potassium 4.2 mmol/L (3.5-5.1); Sodium 140 mmol/L (136-145)
[2024-09-05 11:35] LABS: Anion Gap 11 (5-15); Calcium 8.9 mg/dL (8.7-10.4); Carbon Dioxide 22 mmol/L (20-31)
[2024-09-05 11:40] LABS: BUN/Creatinine Ratio 17.6 (10.0-20.0); Blood Urea Nitrogen 13 mg/dL (9-23); Chloride 107 mmol/L (98-107); Glucose 89 mg/dL (74-106)
[2024-09-05] MEDS: FUROSEMIDE 20 MG/2 ML VIAL IV ONE (11:55)
[2024-09-05] MEDS: AZITHROMYCIN 500MG/ 250ML 250 ML IV ONE (11:59)
[2024-09-05] MEDS: LORazepam 2MG/ML-1ML VIAL IV ONE ×2 (12:31→17:30)
[2024-09-05 13:24] LABS: Urine Protein, UAD Negative (Negative)
[2024-09-05] MEDS ORDERED: NITROGLYCERIN 0.4 MG SL TAB SL PRN (16:45)
[2024-09-05] MEDS: IOHEXOL 350 MG/ML 100ML IJ ONE (16:59)
[2024-09-05 17:28] LABS: Alanine Aminotransferase 34 U/L (7-40); Albumin 3.9 g/dL (3.2-4.8); Alkaline Phosphatase 115 U/L (46-116); Bilirubin, Total 0.3 mg/dL (0.2-1.0); Total Protein 6.2 g/dL (5.7-8.2)
[2024-09-05 17:31] LABS: Bilirubin, Direct < 0.1 mg/dL (<0.3)
[2024-09-05 17:31] LABS: Amphetamine Screen, Urine Neg (NEGATIVE); Barbiturate Scree,Urine Neg (NEGATIVE); Benzodiazephine Screen, Urine Neg (NEGATIVE); Cannabinoid Screen, Urine Neg (NEGATIVE); Cocaine Screen, Urine Neg (NEGATIVE); Opiate Scree,Urine Neg (NEGATIVE); Phencyclidine Screen, Urine Neg (NEGATIVE)
[2024-09-05] MEDS ORDERED: LABETALOL INJECTION 250 MG in SODIUM CHL 0.9% 200 ML IV ONE (17:45)
--- NOTE | 2024-09-05 18:10 | DVHHPRES ---
History of Present Illness Resident Creating Document: DARIAN TOMPKINS RESIDENT History of Present Illness 34-year-old female with obesity , history of preeclampsia, day 5 post following of a healthy baby on Sunday (09/01/2024), comes to the ER with complaints of shortness of breath since last 3 days. Shortness of breaths increased on lying down, it starts while resting and since on exertion. She is experiencing dry cough with minimal phlegm for the same duration. She reports having 2 episodes of blood mixed cough since her symptoms started. Developed fatigue for the same duration to the point that she was not able to carry her . She is not breast-feeding. She reports having preeclampsia during , for which she was taking labetalol. She denies any recent travel, sick contacts. Denies any chest pain, fever chills, abdominal pain, urinary symptoms or any other complaints today. Past medical history: Hypertension on labetalol Past surgical history: None Family History: Nothing significant nursing associate: 2 NVDs,1 . Day 5 . Allergy: Morphine Smoking history: None Drug: Never Alcohol: Occasionally, last drink was 9 months ago. Home medications: Labetalol 300 mg b.i.d., ibuprofen as needed, ferrous sulfate. Review of Systems Review of Systems The patient was seen and examined at the bedside. She reports having shortness of breath, cough, fatigue. Rest of the ROS is negative Allergies: Coded Allergies: Hydromorphone (Verified Allergy, Mild, VERY MILD ITCHING ON ARMS AND ABDOMEN AFTER ADMINISTRATION, 05/14/10) Medications Current Medications Medications Dose Ordered Sig/Jeffrey Route Start Time Stop Time Status Last Admin Dose Admin Sodium Chloride 10 ml Q8HR IV 09/05/24 22:00 UNV Nitroglycerin 0.4 mg Q5MINP PRN SL 09/05/24 16:45 UNV Furosemide 40 mg BIDD IV 09/06/24 06:00 UNV Ceftriaxone Sodium 50 ml @ 100 mls/hr DAILY@09 IV 09/06/24 09:00 UNV Nitroglycerin 250 ml @ 1.5 mls/hr Q24H IV 09/05/24 18:00 UNV Exam Vital Signs Vital Signs Date Time Temp Pulse Resp B/P (MAP) Pulse Ox O2 Delivery O2 Flow Rate FiO2 09/05/24 16:45 99 191/119 09/05/24 16:02 14 95 09/05/24 10:50 Nasal Cannula* 2 28 09/05/24 10:45 97.9 97.9 Exam Pt is lying on bed General Appearance: Morbid obesity, Alert, Oriented X3, Cooperative, Mild distress HEENT: Nasal cannula with [address] Atraumatic, Mucous membranes m oist/pink Respiratory: Bilateral crackles present, Normal air movement, No added sounds Cardiovascular: JVD present, Regular rate, Normal S1, Normal S2, No murmurs Abdominal/ : Active bowel sounds, Soft, no distention, no tenderness Extremities: 1+edema, Normal pulses, No tenderness/swelling PV exam: Normal lochia serosa present, no active bleeding. No vaginal edema or infection. Skin: No Significant rash, except past surgical scars Neuro: Normal speech, sensorimotor deficits none Psych/Mental Status: Mental status NL, Mood NL Nurse was there as horizontal drill operator during examination Labs/Xrays Labs Test 09/05/24 12:49 09/05/24 12:46 09/05/24 10:33 09/05/24 10:30 Range/Units Urine Color Colorless Yellow Urine Clarity Clear Clear Urine pH 5.5 5.0-9.0 Urine Specific [place] 1.005 1.001-1.035 Urine Protein Negative Negative Urine Ketones Negative Negative Urine Blood 3+ H Negative /uL Urine Nitrite Negative Negative Urine Bilirubin Negative Negative Urine Urobilinogen Normal Negative mg/dL Urine Leukocyte Esterase 2+ Negative /uL Urine RBC 64 0 - 4 /hpf Urine Microscopic WBC 5 0-5 /HPF Urine Squamous Epithelial Cells Few <5 /hpf Urine Bacteria None seen None Seen /hpf Urine Glucose Normal Normal mg/dL Urine Opiates Screen Neg NEGATIVE Urine Fentanyl Screen Neg NEGATIVE Urine Barbiturates Screen Neg NEGATIVE Urine Phencyclidine Screen Neg NEGATIVE Urine Amphetamines Screen Neg NEGATIVE Urine Benzodiazepines Screen Neg NEGATIVE Urine Cocaine Screen Neg NEGATIVE Urine Cannabinoids Screen Neg NEGATIVE White Blood Count 12.3 #H 4.4-10.8 10^3/uL Red Blood Count 3.47 L 4.0-5.20 10^6/uL Hemoglobin 9.6 L 12.2-16.2 g/dL Hematocrit 28.4 L 36.0-46.0 % Mean Corpuscular Volume 81.8 80.0-100.0 fL Mean Corpuscular Hemoglobin 27.6 L 28.0-32.0 pg Mean Corpuscular Hemoglobin Concent 33.8 32.0-36.0 g/dL Red Cell Distribution Width 14.8 H 11.8-14.3 % Platelet Count 394 140-450 10^3/uL Mean Platelet Volume 8.5 6.9-10.8 fL Neutrophils (%) (Auto) 73.8 37.0-80.0 % Lymphocytes (%) (Auto) 19.3 10.0-50.0 % Monocytes (%) (Auto) 5.7 0.0-12.0 % Eosinophils (%) (Auto) 1.0 0.0-7.0 % Basophils (%) (Auto) 0.2 0.0-2.0 % Neutrophils # (Auto) 9.1 H 1.6-8.6 10 ^3/uL Lymphocytes # (Auto) 2.4 0.4-5.4 10 ^3/uL Monocytes # (Auto) 0.7 0-1.3 10 ^3/uL Eosinophils # (Auto) 0.1 0-0.8 10 ^3/uL Basophils # (Auto) 0 0-0.2 10 ^3/uL Nucleated Red Blood Cells 0.0 % D-Dimer, Quantitative 3.68 H 0.0-0.49 mg/L FEU Sodium Level 140 136-145 mmol/L Potassium Level 4.2 3.5-5.1 mmol/L Chloride Level 107 98-107 mmol/L Carbon Dioxide Level 22 20-31 mmol/L Anion Gap 11 5-15 Blood Urea Nitrogen 13 9-23 mg/dL Creatinine 0.74 0.550-1.02 mg/dL Glomerular Filtration Rate Calc 107 >90 mL/min BUN/Creatinine Ratio 17.6 10.0-20.0 Serum Glucose 89 74-106 mg/dL Calcium Level 8.9 8.7-10.4 mg/dL Total Bilirubin 0.3 0.2-1.0 mg/dL Direct Bilirubin < 0.1 <0.3 mg/dL Aspartate Amino Transferase (AST) 50 H 13-40 U/L Alanine Aminotransferase (ALT) 34 7-40 U/L Alkaline Phosphatase 115 46-116 U/L Total Protein 6.2 5.7-8.2 g/dL Albumin 3.9 3.2-4.8 g/dL B-Type Natriuretic Peptide 460.06 0-100 pg/mL SEPSIS Sepsis Screen Date sepsis recognized/suspect: Sep 05, 2024 Time Sepsis recognized/suspect: 1315 Recent Procedure: No On Antibiotic Therapy: Yes Respiratory Rate >20: Yes Heart Rate >90: No Temp<36 C (96.8 F) or >38.3 C: No SBP <90 or MAP <65 mmHG: No New Acute Mental Status Change: No Is the patient on CPAP, BIPAP,: No Physician Orders Chest Portable (09/05/24 10:21) Drug Screen (09/05/24 16:22) Admit (09/05/24 16:42) Allergies (09/05/24 16:42) Code Status (09/05/24 16:42) Sodium Chloride Lock (Saline Lock Ns) (09/05/24 22:00) Oxygen Per Hour (09/05/24 16:42) Complete Blood Count (09/06/24 04:00) Comprehensive Metabolic Panel (09/06/24 04:00) Npo (Nothing By Mouth) Diet (09/05/24 Dinner) Echo 2d Mode Cardiac Dop (09/05/24 16:42) Condition: Serious (09/05/24 16:42) Nitroglycerin Sublingual (Ntrostat Subli (09/05/24 16:45) Oxygen By Nasal Cannula (09/05/24 16:42) Stat Ekg For Chest Pain (09/05/24 16:42) Notify Md Of Changes From Base (09/05/24 16:42) Emergency Operator For 24 Hours (09/05/24 16:42) Emergency Dysrhythmia Protocol (09/05/24 16:42) Rhythm Strips Once Every Shift (09/05/24 16:42) Ct Angio Chest Contrast (09/05/24 16:42) Urine Bacterial Culture (09/05/24 16:55) Blood Culture (09/05/24 16:55) Respiratory Culture W/ Gs (09/05/24 16:55) Covid19 Antigen Brenda (09/05/24 ) Rapid Influenza A&B (09/05/24 16:55) Mrsa Screen (09/05/24 16:55) * Cardiology Consult (09/05/24 16:55) Lorazepam 2mg/Ml Inj (Ativan Inj) (09/05/24 17:30) Furosemide Injection (Lasix Injection) (09/05/24 17:30) Iron Panel (09/05/24 17:44) Ferritin (09/05/24 17:44) Thyroid Stimulating Hormone (09/05/24 17:44) Vitamin B12 (09/05/24 17:44) Vitamin D, 25-Hydroxy (09/05/24 17:44) Magnesium (09/05/24 17:44) Troponin-I Hs (09/05/24 17:44) Troponin-I Hs (09/05/24 18:44) Troponin-I Hs (09/05/24 20:44) Electrocardigram (09/05/24 17:44) Furosemide Injection (Lasix Injection) (09/06/24 06:00) Ceftriaxone 1gm/50ml D5w (Rocephin) (09/06/24 09:00) Ceftriaxone 1gm/50ml D5w (Rocephin) (09/05/24 17:45) Transfer Orders (09/05/24 17:44) Bilat Lower Dvt (09/05/24 17:49) Nitroglycerin 50mg/250ml (Tridil) (09/05/24 18:00) Lactic Acid W/ Reflex Order (09/05/24 18:01) Vital Signs Date Time Temp Pulse Resp B/P (MAP) Pulse Ox O2 Delivery O2 Flow Rate FiO2 09/05/24 16:45 99 191/119 09/05/24 16:02 99 14 191/119 (143) 95 09/05/24 14:01 97 29 183/85 (117) 90 09/05/24 13:01 96 22 158/91 (113) 94 09/05/24 11:55 181/121 09/05/24 11:51 92 181/121 09/05/24 10:51 97 173/95 09/05/24 10:50 18 96 Nasal Cannula* 2 28 09/05/24 10:45 97.9 96 29 173/95 (121) 95 97.9 09/05/24 10:45 96 28 95 Nasal Cannula* 2 28 09/05/24 10:07 98.2 100 16 164/110 (128) 99 98.2 Laboratory Tests Test 09/05/24 10:33 White Blood Count 12.3 10^3/uL (4.4-10.8) #H Medications Medications Dose Ordered Sig/Jeffrey Route Start Time Stop Time Status Last Admin Dose Admin Albuterol 5 mg ONCE ONCE NEB 09/05/24 10:30 09/05/24 10:33 DC 09/05/24 10:49 5 MG Azithromycin 250 ml @ 125 mls/hr ONCE ONCE IV 09/05/24 10:30 09/05/24 12:29 DC 09/05/24 11:59 125 MLS/HR Ceftriaxone Sodium 50 ml @ 100 mls/hr ONCE ONCE IV 09/05/24 10:30 09/05/24 10:59 DC 09/05/24 10:50 100 MLS/HR Furosemide 20 mg ONCE ONCE IV 09/05/24 11:30 09/05/24 11:31 DC 09/05/24 11:55 20 MG Ipratropium [place] 0.5 mg ONCE ONCE NEB 09/05/24 10:30 09/05/24 10:33 DC 09/05/24 10:49 0.5 MG Labetalol HCl 10 mg ONCE ONCE IV 09/05/24 10:45 09/05/24 10:46 DC 09/05/24 10:51 10 MG Labetalol HCl 10 mg ONCE ONCE IV 09/05/24 16:30 09/05/24 16:31 DC 09/05/24 16:45 10 MG Lorazepam 1 mg ONCE ONCE IV 09/05/24 12:00 09/05/24 12:01 DC 09/05/24 12:31 1 MG Assessment/Plan Assessment/Plan Shortness of breaths likely due to below ? Acute systolic vs diastolic CHF, R/o PE, ?peripartum cardiomyopathy, ?pneumonia due to Gram-positive or Gram-negative organism HTN emergency Medhat status started on NG drip Chest x-ray: Cardiomegaly with CHF Echocardiography, troponin ordered CT angiography ordered D-dimer elevated. BNP elevated Lasix 40 mg IV b.i.d. ordered Ceftriaxone ordered Strict urine output measurements Cardiology consult pending Labetalol was switched to nitroglycerin drip Fe deficiency anemia TSH Iron panel ordered, iron po 325 mg Morbid obesity with BMI 43.6 Advice on lifestyle modifications upon stabilization Vit D deciency repleting GI prophylaxis: Not indicated DVT prophylaxis: Enoxaparin Diet: NPO for now Goals of care discussed with the patient for more than 27 minutes: Full code status Case discussed with Dr. Delcid , patient and RN Plan discussed with: Patient, Other (RN) My Orders Orders - DARIAN TOMPKINS RESIDENT Procedure Category Date Status Time Admit ADMIT 09/05/24 Transmitted 16:42 Allergies TRIXIE 09/05/24 In Process 16:42 Code Status CODE 09/05/24 Transmitted 16:42 Sodium Chloride Lock PHA 09/05/24 Logged (Saline Lock Ns) 22:00 Oxygen Per Hour RT 09/05/24 Transmitted 16:42 Complete Blood Count LAB 09/06/24 Verified 04:00 Comprehensive LAB 09/06/24 Verified Metabolic Panel 04:00 Npo (Nothing By DIET 09/05/24 Transmitted Mouth) Diet Dinner Echo 2d Mode Cardiac US 09/05/24 Logged DOP 16:42 Condition: Serious TRIXIE 09/05/24 In Process 16:42 Nitroglycerin PHA 09/05/24 Logged Sublingual (Ntrostat 16:45 Oxygen By Nasal RT 09/05/24 Transmitted Cannula 16:42 Stat Ekg For Chest TRIXIE 09/05/24 In Process Pain 16:42 Notify Md Of Changes TRIXIE 09/05/24 In Process From Base 16:42 Emergency Operator For BANNER 09/05/24 In Process 24 Hours 16:42 Emergency Dysrhythmia BANNER 09/05/24 In Process Protocol 16:42 Rhythm Strips Once BANNER 09/05/24 In Process Every Shift 16:[address] 09/05/24 Logged Contrast 16:42 Urine Bacterial LILIANE 09/05/24 In Process Culture 16:55 Blood Culture LILIANE 09/05/24 In Process 16:55 Respiratory Culture LILIANE 09/05/24 Logged W/ Gs 16:55 Covid19 Antigen Brenda LAB 09/05/24 Logged Rapid Influenza A&B LAB 09/05/24 Logged 16:55 Mrsa Screen LILIANE 09/05/24 Logged 16:55 * Cardiology Consult CONS 09/05/24 Transmitted 16:55 Lactic Acid W/ Reflex LAB 09/05/24 Logged Order 18:01 DARIAN TOMPKINS RESIDENT Sep 05, 2024 18:09 GEOVANY FREDERICK RESIDENT Sep 05, 2024 19:56
[2024-09-05] MEDS: FUROSEMIDE 40 MG/4 ML VIAL IV ONE (18:21)
[2024-09-05 18:38] LABS: Ferritin 57.6 ng/mL (10-291)
[2024-09-05] MEDS: NITROGLYCERIN 50MG/250ML 250 ML IV SCH (18:38)
--- NOTE | 2024-09-05 18:49 | DVH ---
Technique: Real-time ultrasound imaging, with color Doppler and compression of the bilateral common femoral vein, femoral vein, greater saphenous vein, and popliteal vein. Indication: r/o dvt Comparison: None Findings: There is normal compressibility and flow augmentation in all of the imaged deep veins. There are no f illing defects. Impression: No evidence of DVT in the bilateral lower extremities
[2024-09-05 19:09] LABS: Iron 43.0 ug/dL (50-170)
[2024-09-05 19:10] LABS: COVID19 ANTIGEN SOFIA FIA NEGATIVE (NEGATIVE)
[2024-09-05 19:12] LABS: Total Iron Binding Capacity 481.0 ug/dL (250-425)
[2024-09-05] MEDS: ENOXAPARIN SOD 40 MG/0.4 ML SYRINGE SC ONE (19:15)
[2024-09-05 19:35] VITALS: PULSE 95; RESP 22; O2SAT 94
[2024-09-05] MEDS: ERGOCALCIFEROL 50,000 UNIT(1.25MG) CAP PO SCH (20:00)
[2024-09-05] MEDS: SODIUM CHLOR 0.9% PF (SALINE LOCK) 10ML VIAL/SYR IV SCH (21:18)
--- NOTE | 2024-09-05 22:56 | DVH ---
CLINICAL HISTORY: SOB TECHNIQUE: CT angiogram of the chest was performed with intravenous contrast. 100 mL ml of omnipaque 300 was administered intravenously. 3D MIP reconstructed images were created and archived on the PACS system. This exam was performed according to our departmental dose optimization program. Up-to-date CT equipment and radiation dose reduction techniques are utilized as appropriate. CTDI: DLP: 2100.93 WID: COMPARISON: None FINDINGS: Lower Neck: Unremarkable Axilla, Mediastinum and Aneta: Mildly prominent bilateral axillary lymph nodes. No pathologically enla rged mediastinal or hilar lymph nodes. Heart and Great Vessels: Mild cardiomegaly with small pericardial fluid. The thoracic aorta is paten t and normal caliber. Dilatation of the main pulmonary artery measuring 3.6 cm on series 2, image 82. There is no central , segmental, or definite subsegmental pulmonary artery filling defect to sugges t pulmonary embolism. Airway, Lungs and Pleura: Trachea and central airways are patent. There is interlobular septal thicke teodoro of the lungs. There is patchy and confluent consolidative and ground-glass opacities in the lung s. Moderate bilateral pleural effusions, greater on the right. No pneumothorax. Chest Wall and Osseous Structures: No destructive osseous lesion. Minor thoracic spondylosis. Upper abdomen: Reflux of contrast into the IVC in the hepatic veins. No acute abnormality. IMPRESSION: No pulmonary embolism. CHF/volume overload, with mild cardiomegaly, interstitial and alveolar pulmonary edema, and moderate bilateral pleural effusions. Dilated main pulmonary artery which can be seen in the setting of pulmonary hypertension.
[2024-09-05] MEDS: FUROSEMIDE 40 MG/4 ML VIAL IV STA (23:14)
[2024-09-06] MEDS: LORazepam 2MG/ML-1ML VIAL IV ONE (00:39)
[2024-09-06] MEDS: METOCLOPRAMIDE HCL 5MG/ml INJ 2ml VIAL IV PRN (00:41)
--- NOTE | 2024-09-06 01:50 | ECG ---
[facility] Test Date: 2024-09-05 Test Time: 19:03:12 Pat Name: FRANCO SMITH Department: ED Room: 0274T Gender: F Machine Filler: FIOR : 1990 Requested By: GEOVANY FREDERICK Order Number: [id number] Reading MD: Henri Montano Measurements Intervals [place] Rate: 96 P: 61 MA: 131 QRS: 46 QRSD: 91 T: 58 QT: 399 QTc: 505 Interpretive Statements Sinus rhythm Borderline prolonged QT interval Electronically Signed On 09-10-2024 17:45:26 PDT by Henri Montano Please click the below link to view image of tracing.
[2024-09-06 04:24] LABS: Hematocrit 31.0 % (36.0-46.0); Hemoglobin 10.4 g/dL (12.2-16.2); Mean Corpuscular Hemoglobin 27.3 pg (28.0-32.0); Mean Corpuscular Volume 81.3 fL (80.0-100.0); Nucleated Red Blood Cells % 0.0 %
[2024-09-06 04:37] LABS: Alanine Aminotransferase 32 U/L (7-40); Albumin 4.1 g/dL (3.2-4.8); Anion Gap 12 (5-15); BUN/Creatinine Ratio 12.6 (10.0-20.0); Bilirubin, Total 0.5 mg/dL (0.2-1.0); Blood Urea Nitrogen 11 mg/dL (9-23); Calcium 8.9 mg/dL (8.7-10.4); Carbon Dioxide 26 mmol/L (20-31); Chloride 103 mmol/L (98-107); Glucose 95 mg/dL (74-106); Potassium 4.0 mmol/L (3.5-5.1); Sodium 141 mmol/L (136-145); Total Protein 6.6 g/dL (5.7-8.2)
[2024-09-06 04:41] LABS: Alkaline Phosphatase 117 U/L (46-116)
[2024-09-06] MEDS: FUROSEMIDE 20 MG/2 ML VIAL IV STA (05:06)
[2024-09-06] MEDS: LOSARTAN POTASSIUM 25 MG TAB PO ONE (05:47)
[2024-09-06] MEDS: FUROSEMIDE 40 MG/4 ML VIAL IV SCH (05:51)
[2024-09-06] MEDS: hydrALAZINE HCL 20 MG/ML VL IV ONE (06:19)
--- NOTE | 2024-09-06 08:09 | DVH ---
US PELVIC HISTORY: any abscess COMPARISON: None TECHNIQUE: Transabdominal images with color and spectral doppler were obtained of the pelvis and ov charleen. FINDINGS: Uterus: - Measures 15.8 x 10.9 x 10.5 cm in length. - Echogenicity: Normal - Mass lesions: None - Endometrial stripe: 53 mm - Cervix: Normal. Right ovary: - Not seen. Left ovary: - Not seen. Adnexal masses: None Free fluid: None Other: None IMPRESSION: Heterogeneous echogenic material in the uterine canal can be seen with retained products of conceptio n.
[2024-09-06] MEDS: ACETAMINOPHEN 325 MG TAB PO PRN (08:11)
[2024-09-06 08:15] VITALS: PULSE 93; RESP 31; O2SAT 97
[2024-09-06] MEDS ORDERED: LORazepam 2MG/ML-1ML VIAL IV PRN (08:30)
[2024-09-06] MEDS: cefTRIAXone 1GM/50ML D5W 50 ML IV SCH (08:46)
[2024-09-06 09:02] VITALS: BP 109/74; PULSE 103; RESP 16; TEMP 98.4; O2SAT 99
[2024-09-06 09:04] VITALS: O2SAT 99
[2024-09-06 09:05] VITALS: O2SAT 99
[2024-09-06] MEDS: LOSARTAN POTASSIUM 25 MG TAB PO SCH (11:02)
[2024-09-06] MEDS: ENOXAPARIN SOD 40 MG/0.4 ML SYRINGE SC SCH (11:02)
--- NOTE | 2024-09-06 11:21 | DVHINCON2 ---
Date Seen: Sep 06, 2024 Referring Physician MD Leny Reason for Consultation CHF History of Present Illness 34-year-old female with a past medical history of hypertension, obesity, and prior preeclampsia, presents to the emergency department on day five following delivery on 09/01/2024, with complaint of progressive shortness of breath ongoing for the past three days. Symptoms include dyspnea on exertion, orthopnea, and bilateral lower extremity edema, which began shortly after the hospital discharge. This is her 2nd , and she reports no similar symptoms in during her 1st . . She denies any chest pain, palpitations, fever, cough, tobacco use, or illicit drug use. She also denies family history of cardiovascular disease. In the emergency department, chest x- ray shows cardiomegaly consistent with CHF, BNP is 460, 12 lead ECG reveals normal sinus rhythm with prolonged QTc. Past Medical History As stated in HPI Past Surgical History Denies Family History Reviewed, non-contributory to the management of this case. Social History The patient lives at home, denies smoking, alcohol or illicit drugs abuse. Allergies: Coded Allergies: Hydromorphone (Verified Allergy, Mild, VERY MILD ITCHING ON ARMS AND ABDOMEN AFTER ADMINISTRATION, 05/14/10) Home Meds Active Scripts Ferrous Sulfate (FERROUS SULFATE) 325 Mg Tb, 1 TAB PO DAILY, #30 TAB 3 Refills Prov:GRAHAM MCKEE CN 09/02/24 Ibuprofen Micronized (MOTRIN TABLET) 600 Mg Tb, 600 MG PO Q6HP PRN for 20 Days, #80 TAB Prov:GRAHAM MCKEE CN 09/02/24 Docusate Sodium (Docusate Sodium) 100 Mg Cap, 200 MG PO HS PRN for 30 Days, #60 CAP 2 Refills Prov:GRAHAM MCKEE CNM 09/02/24 Reported Medications Labetalol Hcl (Labetalol Hcl) 300 Mg Tab, 300 MG PO BID for 30 Days, MG 09/03/24 Discontinued Reported Medications Ondansetron (Zofran Odt) 4 Mg Tab, Q6HP 05/13/10 Hydrocodone-Acetaminophen ([place] 10/325MG) 1 Tab Tb, Q6HP 05/13/10 Current Medications Current Medications Medications (Trade) Dose Ordered Sig/Jeffrey Route PRN Reason Start Time Stop Time Status Last Admin Sodium Chloride (Saline Lock Ns) 10 ml Q8HR IV 09/05/24 22:00 09/06/24 05:51 Nitroglycerin (Ntrostat Sublingual) 0.4 mg Q5MINP PRN SL FOR CHEST PAIN 09/05/24 16:45 Furosemide (Lasix Injection) 40 mg BIDD IV 09/06/24 06:00 09/06/24 05:51 Ceftriaxone Sodium 50 ml @ 100 mls/hr DAILY@09 IV 09/06/24 09:00 09/06/24 08:46 Nitroglycerin 250 ml @ 1.5 mls/hr Q24H IV 09/05/24 18:00 09/05/24 18:38 Enoxaparin Sodium (Lovenox) 40 mg DAILY SC 09/06/24 10:00 09/06/24 11:02 Ergocalciferol (Vitamin D 50,000 Unit) 50,000 unit Q7D PO 09/05/24 20:00 09/05/24 20:00 Ferrous Sulfate 325 mg MWF PO 09/08/24 10:00 Furosemide (Lasix Injection) 40 mg ONCE STAT IV 09/05/24 23:03 09/05/24 23:05 DC 09/05/24 23:14 Acetaminophen (Tylenol Tablet) 650 mg Q4HP PRN PO MODERATE PAIN (4-6 PAIN SCALE) 09/05/24 23:45 09/06/24 08:11 Metoclopramide HCl (Reglan Injection) 10 mg Q6HPRN PRN IV NAUSEA / VOMITING 09/06/24 00:30 09/06/24 00:41 Furosemide (Lasix Injection) 20 mg ONCE STAT IV 09/06/24 04:54 09/06/24 04:56 DC 09/06/24 05:06 Losartan Potassium (Cozaar Tablet) 25 mg DAILY PO 09/06/24 10:00 09/06/24 11:02 Albuterol (Ventolin Medneb) 2.5 mg Q4HPRN PRN NEB SHORTNESS OF BREATH 09/06/24 07:30 Ipratropium [place] (Atrovent Medneb) 0.5 mg Q4HPRN PRN NEB SHORTNESS OF BREATH 09/06/24 07:30 Lorazepam (Ativan Inj) 1 mg Q6HP PRN IV ANXIETY 09/06/24 08:30 Review of Systems Constitutional: No symptom reported Ears, Nose, & Throat: No symptom reported Eyes: No symptom reported Neurological: No symptoms reported Pulmonary/Respiratory: No symptom reported Cardiovascular: Positive for dyspnea, orthopnea, and edema. Denies chest pain Gastrointestinal: No symptom reported Genitourinary: No symptom reported Musculoskeletal: No symptom reported Skin: No symptom reported Psychiatric: No symptom reported Endocrine: No symptom reported Hematologic/Lymphatic: No symptom reported Vital Signs Vital Signs Date Time Temp Pulse Resp B/P (MAP) Pulse Ox O2 Delivery O2 Flow Rate FiO2 09/06/24 11:02 143/87 09/06/24 09:18 88 16 97 09/06/24 09:05 Nasal Cannula* 3 32 09/06/24 09:02 98.4 98.4 Physical Exam INITIAL VITAL SIGNS: Reviewed by me GENERAL: Alert and interactive. No acute distress. HEAD: Head is normocephalic and atraumatic. EYES: EOMI, PERRL. No scleral icterus. No conjunctival injection. ENT: Moist mucous membranes. NECK: Supple, No masses, Full range of motion. RESPIRATORY: Diminished lung sounds CV: Regular rate and rhythm. JVD distended, bilateral lower extremity edema, orthopnea GI/: Active bowel sounds, soft, nondistended, nontender. No guarding. No rebound. No masses. No CVA tenderness. INTEGUMENTARY: Warm and dry. No obvious rashes. NEUROLOGIC: Alert and oriented. Face is symmetric. Speech is normal. Moves all extremities equally. Labs/Diagnostic Data Labs Test 09/06/24 03:37 09/05/24 21:05 09/05/24 18:13 09/05/24 17:40 Range/Units White Blood Count 13.8 H 4.4-10.8 10^3/uL Red Blood Count 3.81 L 4.0-5.20 10^6/uL Hemoglobin 10.4 L 12.2-16.2 g/dL Hematocrit 31.0 L 36.0-46.0 % Mean Corpuscular Volume 81.3 80.0-100.0 fL Mean Corpuscular Hemoglobin 27.3 L 28.0-32.0 pg Mean Corpuscular Hemoglobin Concent 33.6 32.0-36.0 g/dL Red Cell Distribution Width 14.7 H 11.8-14.3 % Platelet Count 452 H 140-450 10^3/uL Mean Platelet Volume 8.5 6.9-10.8 fL Neutrophils (%) (Auto) 72.1 37.0-80.0 % Lymphocytes (%) (Auto) 18.2 10.0-50.0 % Monocytes (%) (Auto) 8.0 0.0-12.0 % Eosinophils (%) (Auto) 1.0 0.0-7.0 % Basophils (%) (Auto) 0.7 0.0-2.0 % Neutrophils # (Auto) 9.9 H 1.6-8.6 10 ^3/uL Lymphocytes # (Auto) 2.5 0.4-5.4 10 ^3/uL Monocytes # (Auto) 1.1 0-1.3 10 ^3/uL Eosinophils # (Auto) 0.1 0-0.8 10 ^3/uL Basophils # (Auto) 0.1 0-0.2 10 ^3/uL Nucleated Red Blood Cells 0.0 % Sodium Level 141 136-145 mmol/L Potassium Level 4.0 3.5-5.1 mmol/L Chloride Level 103 98-107 mmol/L Carbon Dioxide Level 26 20-31 mmol/L Anion Gap 12 5-15 Blood Urea Nitrogen 11 9-23 mg/dL Creatinine 0.87 0.550-1.02 mg/dL Glomerular Filtration Rate Calc 89 >90 mL/min BUN/Creatinine Ratio 12.6 10.0-20.0 Serum Glucose 95 74-106 mg/dL Calcium Level 8.9 8.7-10.4 mg/dL Total Bilirubin 0.5 0.2-1.0 mg/dL Aspartate Amino Transferase (AST) 37 13-40 U/L Alanine Aminotransferase (ALT) 32 7-40 U/L Alkaline Phosphatase 117 H 46-116 U/L Total Protein 6.6 5.7-8.2 g/dL Albumin 4.1 3.2-4.8 g/dL Troponin I High Sensitivity 15 </=34 ng/L Influenza Type A Antigen Negative Negative Influenza Type B Antigen Negative Negative SARS-CoV-2 Antigen (Rapid) Negative NEGATIVE Lactic Acid Level 1.2 0.4-2.0 mmol/L Test 09/05/24 12:49 09/05/24 12:46 09/05/24 10:33 09/05/24 10:30 Range/Units Urine Color Colorless Yellow Urine Clarity Clear Clear Urine pH 5.5 5.0-9.0 Urine Specific [place] 1.005 1.001-1.035 Urine Protein Negative Negative Urine Ketones Negative Negative Urine Blood 3+ H Negative /uL Urine Nitrite Negative Negative Urine Bilirubin Negative Negative Urine Urobilinogen Normal Negative mg/dL Urine Leukocyte Esterase 2+ Negative /uL Urine RBC 64 0 - 4 /hpf Urine Microscopic WBC 5 0-5 /HPF Urine Squamous Epithelial Cells Few <5 /hpf Urine Bacteria None seen None Seen /hpf Urine Glucose Normal Normal mg/dL Urine Opiates Screen Neg NEGATIVE Urine Fentanyl Screen Neg NEGATIVE Urine Barbiturates Screen Neg NEGATIVE Urine Phencyclidine Screen Neg NEGATIVE Urine Amphetamines Screen Neg NEGATIVE Urine Benzodiazepines Screen Neg NEGATIVE Urine Cocaine Screen Neg NEGATIVE Urine Cannabinoids Screen Neg NEGATIVE D-Dimer, Quantitative 3.68 H 0.0-0.49 mg/L FEU Magnesium Level 2.1 # 1.6-2.6 mg/dL Iron Level 43 L 50-170 ug/dL Total Iron Binding Capacity 481 H 250-425 ug/dL Percent Iron Saturation 8.9 L 15-50 % Ferritin 57.6 10-291 ng/mL Direct Bilirubin < 0.1 <0.3 mg/dL Vitamin D 25-Hydroxy 5.7 L 30.0-100 ng/mL Thyroid Stimulating Hormone (TSH) 1.77 0.55-4.78 uIU/mL B-Type Natriuretic Peptide 460.06 0-100 pg/mL PROCEDURE(s): CXRP - CHEST PORTABLE REASON: sob ORDER NUMBER(s): [id number], ACCESSION NUMBER(s): [id number] INDICATION: sob TECHNIQUE: Frontal view of the chest. COMPARISON: None FINDINGS: Cardiomegaly with CHF. There is no evidence of pleural disease. The lungs are clear. The bony structures of the chest are intact without fracture. IMPRESSION: 1. Cardiomegaly with CHF. Assessment 1. and shortness of breath---likely new-onset heart failure, rule out peripartum cardiomyopathy * Day five with acute dyspnea, orthopnea, and edema * Chest x-ray shows cardiomegaly with CHF features, BNP elevated, an ECG shows prolonged QTC * Given her history of preeclampsia and hypertension, she is at increased risk for peripartum cardiomyopathy * Continue BB metoprolol 25mg bid. Recommend spironolactone 25mg qd. for better BP control. * Echocardiogram to evaluate cardiac function * Continue with diuretics * Strict intake and output * Close cardiac surveillance 2. Hypertension in --history of preeclampsia * titrate BP meds to achieve well-controlled BP. * DASH diet 3. Hypertriglyceridemia * Start on statins 4. Obesity * Lifestyle modification counseled on diet, weight loss, and regular exercise 5. PE, ruled out * CTA is negative for PE Plan/Recommendation (Dr. Montano ): The patient's presentation is concerning for peripartum cardiomyopathy. While EF is not yet known, chest x-ray, elevated BNP, and clinical symptoms strongly support possible new onset heart failure. Continue IV diuresis to relieve volume overload, while closely watching blood pressure and renal function and urine output. Initiates beta paola metoprolol 25 mg b.i.d. Oxygen support as needed. Monitor on telemetry. In the meantime QTC prolongation on ECG will be monitored carefully to avoid torsades, avoid QT prolonging medications. In addition we will get thyroid function, lipid panel, and A1c. Close cardiac surveillance This medical document was created using an electronic medical record system with voice recognition software and computerized dictation system. Although this document has been carefully reviewed, there might still be some phonetic and typographical errors. Occasional wrong-word or ``sound-alike substitutions may have occurred due to the inherent limitations of voice recognition software. These areas are purely typographical due to imperfections of the software programs and do not reflect any compromise in the patient's medical care. Please read the chart carefully and recognize, using context, where these substitutions have occurred. Plan discussed with: Patient Plan discussed with: Patient NYHA Physical activity limitations: Class2(Slight)fatigue,sob Date of Service: Sep 06, 2024 Billing Provider: PAIGE MONTANO Sr., MD Cardiology Common Codes: CONSULT ONLY SAUL VARGAS PLEATER Sep 06, 2024 11:21
[2024-09-06 12:05] LABS: Cholesterol 174 mg/dL (< 200)
[2024-09-06 12:09] LABS: HDL Cholesterol 39 mg/dL (40-59); Triglycerides 308 mg/dL (< 150)
[2024-09-06] MEDS: PIPERACILLIN-TAZOB 3.375GM 100 ML IV SCH (15:09)
--- NOTE | 2024-09-06 15:47 | DVHPNRES ---
Progress Note Date Seen: Sep 06, 2024 Resident Creating Document: GEOVANY FREDERICK RESIDENT Has the PT tested + for MRSA If YES, has PT been informed?: Yes Medical Necessity Reason Pt with a Central, PICC or Fol: Yes The following are medically ne: [place] Catheter Subjective Review of Systems Today patient seen and examined at the bedside. Patient reported improvement in her shortness of breath and anxiety since admission, reported no active complaints at this time. Cardiology on board, echocardiogram pending. Ultrasound pelvis showed products of conception, consulted OBGYN and upgrade antibiotics to Zosyn. Cultures are pending. We can switch Lasix IV for daily from tomorrow. Patient reports: Feels better Objective vital signs Vital Sign Date Time Temp Pulse Resp B/P (MAP) Pulse Ox O2 Delivery O2 Flow Rate FiO2 09/06/24 11:02 143/87 09/06/24 10:32 94 16 95 09/06/24 09:05 Nasal Cannula* 3 32 09/06/24 09:02 98.4 98.4 Total Intake and Output 09/05/24 09/05/24 09/06/24 15:00 23:00 07:00 Intake Total 300 ml Output Total 3100 ml Balance 300 ml -3100 ml medications Current Medications Medications Dose Ordered Sig/Jeffrey Route Start Time Stop Time Status Last Admin Dose Admin Sodium Chloride 10 ml Q8HR IV 09/05/24 22:00 09/06/24 14:06 10 ML Nitroglycerin 0.4 mg Q5MINP PRN SL 09/05/24 16:45 Furosemide 40 mg BIDD IV 09/06/24 06:00 09/06/24 05:51 40 MG Nitroglycerin 250 ml @ 1.5 mls/hr Q24H IV 09/05/24 18:00 09/05/24 18:38 1.5 MLS/HR Enoxaparin Sodium 40 mg DAILY SC 09/06/24 10:00 09/06/24 11:02 40 MG Ergocalciferol 50,000 unit Q7D PO 09/05/24 20:00 09/05/24 20:00 50,000 UNIT Ferrous Sulfate 325 mg MWF PO 09/08/24 10:00 Acetaminophen 650 mg Q4HP PRN PO 09/05/24 23:45 09/06/24 08:11 650 MG Metoclopramide HCl 10 mg Q6HPRN PRN IV 09/06/24 00:30 09/06/24 00:41 10 MG Losartan Potassium 25 mg DAILY PO 09/06/24 10:00 09/06/24 11:02 25 MG Albuterol 2.5 mg Q4HPRN PRN NEB 09/06/24 07:30 Ipratropium [place] 0.5 mg Q4HPRN PRN NEB 09/06/24 07:30 Lorazepam 1 mg Q6HP PRN IV 09/06/24 08:30 Piperacillin Sod/ Tazobactam Sod 100 ml @ 25 mls/hr Q8HR IV 09/06/24 14:45 09/06/24 15:09 25 MLS/HR Atorvastatin Calcium 40 mg HS PO 09/06/24 22:00 Metoprolol Tartrate 25 mg BID PO 09/06/24 22:00 Examination Pt is lying on bed General Appearance: Alert, Oriented X3, Cooperative, Mild distress HEENT: Nasal cannula with [address] Atraumatic, Mucous membranes moist/pink Respiratory: Bilateral crackles present( Improved since yesterdat), Normal air movement, Cardiovascular: Regular rate, Normal S1, Normal S2, No murmurs Abdominal/ : Active bowel sounds, Soft, no distention, no tenderness Extremities: 1+edema resolving, Normal pulses, No tenderness/swelling PV exam: Normal lochia serosa present, no active bleeding. No vaginal edema or infection. Skin: No Significant rash, except past surgical scars Neuro: Normal speech, sensorimotor deficits none Psych/Mental Status: Mental status NL, Mood NL Nurse was there as claims service representative during examination laboratory and microbiology Laboratory Tests 09/06/24 03:37 Test 09/06/24 03:37 Range/Units Serum Glucose 95 74-106 mg/dL Microbiology Date/Time Source Procedure Growth Status 09/06/24 08:33 Nose MRSA Screen - Final Complete 09/05/24 12:46 Voided Urine Urine Culture - Preliminary Resulted Labs and/or images reviewed: Labs reviewed by me, Image(s) reviewed by me Problem List/Assessment/Plan Problem List/Assessment/Plan # Acute hypoxic respiratory failure likely due to below # ? New onset Acute systolic vs diastolic CHF, # ? Peripartum cardiomyopathy, # HTN emergency # Hx of Preecclampsia # Hx of Cocaine use # Ruled out PE/ DVT, # Probable Sepsis likely due to below # R/o PNA due to Gram-positive or Gram-negative organism - Medhat status downgraded to tele and upgrade if needed - started on NG drip, discontinued, titrate BP meds to achieve well-controlled BP. DASH diet - Chest x-ray shows cardiomegaly with CHF features, BNP elevated, an ECG shows prolonged QTC, troponin WNL - Echocardiography,pending - Cardiology on board advised, to Continue BB metoprolol 25mg bid. Recommend spironolactone 25mg qd. for better BP control. - Lasix 40 mg IV b.i.d. ordered, switch to daily once tommorrow - Strict urine output measurements - D-dimer elevated, CT angiography, no PE and no Dvt - Ceftriaxone Changed to Zosyn - Pancultures ordered, pending - monitor lab - UDS clean but previuos UDS 1 wk ago positive for cocaine use - Pelvic ultrasound showed products of conception, so switched antibiotic to Zosyn - Consulted OBGYN, Recommend close follow up. Rectal Cytotec 800 mcg. and repeat Pelvic US in 48 hrs and no acute COIN MACHINE SERVICE REPAIRER intervention indicated at this time # Hypertriglyceridemia - Start on statins # Fe deficiency anemia - Iron panel ordered, low iron - iron po 325 mg # Morbid obesity with BMI 43.6 - Advice on lifestyle modifications upon stabilization # Vit D deciency - repleting GI prophylaxis: Not indicated DVT prophylaxis: Enoxaparin Diet: Cardiac diet Goals of care discussed with the patient for more than 27 minutes: Full code status Case discussed with Dr. De Souza , patient and RN Plan discussed with: Patient My Orders My Orders Orders - GEOVANY FREDERICK RESIDENT Procedure Category Date Status Time Ferritin LAB 09/05/24 In Process 17:44 Vitamin B12 LAB 09/05/24 In Process 17:44 Furosemide Injection PHA 09/06/24 In Process (Lasix Injection) 06:00 Transfer Orders XFER 09/05/24 Transmitted 17:44 Bilat Lower Dvt US 09/05/24 Resulted 17:49 Insert/Manage Urinary TRIXIE 09/05/24 In Process Catheter 18:22 Ergocalciferol PHA 09/05/24 In Process (Vitamin D 50,000 20:00 Ferrous Sulfate Tablet PHA 09/08/24 In Process 10:00 Albuterol Medneb PHA 7/26/25 In Process (Ventolin Medneb) 07:30 Ipratropium Medneb PHA 09/06/24 In Process (Atrovent Medneb) 07:30 Pelvic US 09/06/24 Resulted 07:19 Cardiac DIET 09/06/24 Transmitted Diet-2gna,Lofat,Lochol Breakfast Lorazepam 2mg/Ml Inj PHA 09/06/24 In Process (Ativan Inj) 08:30 Transfer Orders XFER 09/06/24 Transmitted 14:19 * Blast Furnace Supervisor Consultation CONS 09/06/24 Transmitted 14:26 Piperacillin-Tazob PHA 09/06/24 In Process 3.375gm (Zosyn 3.375g 14:45 Date of Service: Sep 06, 2024 Billing Provider: BRANT DE SOUZA MD Common Visit Codes: [id number] INP/OBS CARE(HIGH) GEOVANY FREDERICK RESIDENT Sep 06, 2024 15:46 BRANT DE SOUZA MD Sep 07, 2024 09:29
--- NOTE | 2024-09-06 15:59 | DVHHP2 ---
[facility] CC & HPI Date Date of Admission: Sep 06, 2024 Chief Complaints: Reason for admission: SOB History of Present Complaints History of Present Complaints 34y who had a precipitous vaginal delivery on 09/01/24 at [facility] by Dr Phillips She received PNL care with Dr Gambino (outside [facility] physician). The patient had a hx of CHTN and was on Labetalol PO since the 1st trimester. She presented with severe HTN and Severe proteinuria when she came in active labor. She placed on MagSO4 x 24hr and discharge w/ "stable BP's" The patient endorses SOB ever since the firs day, and now its getting worse Denies cough, fever, chest pain Endorses headache, moderate. Denies epigastric pain, seizure or syncope BP is severely elevated again in ER on this admission, now controlled w/ meds. CXR shows cardiomegaly and BNP is elevated c/w CHF, need to rule out peripartum cardiomyopathy Patient had a hx of cocaine use. episodic. last used 1-2 wk ago. I was asked to consult on the patient for concerns of "sepsis" and to rule out retained POCS US shows 53mm endometrial stripe. Patient denies heavy bleeding, passing clots, denies fever/chills or uterine tenderness Allergies: Coded Allergies: Hydromorphone (Verified Allergy, Mild, VERY MILD ITCHING ON ARMS AND ABDOMEN AFTER ADMINISTRATION, 05/14/10) Home Meds Active Scripts Ferrous Sulfate (FERROUS SULFATE) 325 Mg Tb, 1 TAB PO DAILY, #30 TAB 3 Refills Prov:GRAHAM MCKEE CNM 09/02/24 Ibuprofen Micronized (MOTRIN TABLET) 600 Mg Tb, 600 MG PO Q6HP PRN for 20 Days, #80 TAB Prov:GRAHAM MCKEE 09/02/24 Docusate Sodium (Docusate Sodium) 100 Mg Cap, 200 MG PO HS PRN for 30 Days, #60 CAP 2 Refills Prov:GRAHAM MCKEE 09/02/24 Reported Medications Labetalol Hcl (Labetalol Hcl) 300 Mg Tab, 300 MG PO BID for 30 Days, MG 09/03/24 Discontinued Reported Medications Ondansetron (Zofran Odt) 4 Mg Tab, Q6HP 05/13/10 Hydrocodone-Acetaminophen ([place] 10/325MG) 1 Tab Tb, Q6HP 05/13/10 Current Medications Current Medications Medications (Trade) Dose Ordered Sig/Jeffrey Route PRN Reason Start Time Stop Time Status Last Admin Sodium Chloride (Saline Lock Ns) 10 ml Q8HR IV 09/05/24 22:00 09/06/24 14:06 Nitroglycerin (Ntrostat Sublingual) 0.4 mg Q5MINP PRN SL FOR CHEST PAIN 09/05/24 16:45 Furosemide (Lasix Injection) 40 mg BIDD IV 09/06/24 06:00 09/06/24 05:51 Ceftriaxone Sodium 50 ml @ 100 mls/hr DAILY@09 IV 09/06/24 09:00 09/06/24 14:35 DC 09/06/24 08:46 Nitroglycerin 250 ml @ 1.5 mls/hr Q24H IV 09/05/24 18:00 09/05/24 18:38 Enoxaparin Sodium (Lovenox) 40 mg DAILY SC 09/06/24 10:00 09/06/24 11:02 Ergocalciferol (Vitamin D 50,000 Unit) 50,000 unit Q7D PO 09/05/24 20:00 09/05/24 20:00 Ferrous Sulfate 325 mg MWF PO 09/08/24 10:00 Furosemide (Lasix Injection) 40 mg ONCE STAT IV 09/05/24 23:03 09/05/24 23:05 DC 09/05/24 23:14 Acetaminophen (Tylenol Tablet) 650 mg Q4HP PRN PO MODERATE PAIN (4-6 PAIN SCALE) 09/05/24 23:45 09/06/24 08:11 Metoclopramide HCl (Reglan Injection) 10 mg Q6HPRN PRN IV NAUSEA / VOMITING 09/06/24 00:30 09/06/24 00:41 Furosemide (Lasix Injection) 20 mg ONCE STAT IV 09/06/24 04:54 09/06/24 04:56 DC 09/06/24 05:06 Losartan Potassium (Cozaar Tablet) 25 mg DAILY PO 09/06/24 10:00 09/06/24 11:02 Albuterol (Ventolin Medneb) 2.5 mg Q4HPRN PRN NEB SHORTNESS OF BREATH 09/06/24 07:30 Ipratropium [place] (Atrovent Medneb) 0.5 mg Q4HPRN PRN NEB SHORTNESS OF BREATH 09/06/24 07:30 Lorazepam (Ativan Inj) 1 mg Q6HP PRN IV ANXIETY 09/06/24 08:30 Piperacillin Sod/ Tazobactam Sod 100 ml @ 25 mls/hr Q8HR IV 09/06/24 14:45 09/06/24 15:09 Atorvastatin Calcium (Lipitor) 40 mg HS PO 09/06/24 22:00 Metoprolol Tartrate (Lopressor Tablet) 25 mg BID PO 09/06/24 22:00 Physical Exam Physical Exam Vitals: Vital Signs Date Time Temp Pulse Resp B/P (MAP) Pulse Ox O2 Delivery O2 Flow Rate FiO2 09/06/24 11:02 143/87 09/06/24 10:32 94 16 95 09/06/24 09:05 Nasal Cannula* 3 32 09/06/24 09:02 98.4 98.4 HEENT: NCAT Abdomen: Other (Involution appropriate. Uterus NON TENDER) Extremities: Edema Reflexes: Hyperreflexia Present Health And Safety Technician/Pelvic Exam: Speculum exam: Cervix closed, no tissue at OS. No active bleeding. Assessment and Plan Plan Assessment and Plan: 1. s/p Early Term Delivery complicated by : CHTN with Severe superimposed pre- eclampsia -- Persistant HTN (severe) in the puerperium\\ --Would normally recommend Mag Sulfate IV drip x 24hr for seizure prophylaxis, but it is relatively contraindicated in CHF/Pulm edema patients -- Please check ECHO and discuss w/ vehicle insurance agent. If so, Magnesium sulfate can be used at low dose 1-2gm/IV per hour x 24hr with Tele or ICU monitoring. --- Alternatively, Keppra or phenytoin can be considered for seizure prophylaxis use short term -- Maintain BP goal 140/90, decreasing BP slowly 2. SOB with elevated BNP, pending ECHO -- Need to rule out peripartum cardiomyopathy 3. Hx of Cocaine use, current UDS neg 4. No clinical evidence of PP endometritis or retained tissue, likely blood clots seen on Pelvic US -- Recommend close follow up. Rectal Cytotec 800 mcg. And repeat Pelvic US in 48 hrs -- no acute FINISH CARPENTER intervention indicated at this time OB will follow with you. Visit Coding OBGYN Date of Service: Sep 06, 2024 Billing Provider: ALEJANDRINA STEVENS DO ELECTRONICS PARTS SALES REPRESENTATIVE Common Visit Codes: CONSULTATION ONLY ELECTRONICS PARTS SALES REPRESENTATIVE Consultation Codes: [id number] CONSULT <80MIN ALEJANDRINA STEVENS DO Sep 06, 2024 15:58
[2024-09-06 18:29] VITALS: O2SAT 95
[2024-09-06] MEDS: ATORVASTATIN 20 MG TAB PO SCH (21:44)
[2024-09-06] MEDS: METOPROLOL TARTRATE 25 MG TAB PO SCH (21:45)
[2024-09-06 23:53] VITALS: BP 136/97; PULSE 91; RESP 18; TEMP 98.6; O2SAT 97
[2024-09-07] VITALS (14 sets, daily range): BP systolic 114–133; BP diastolic 73–96; PULSE 75–99; RESP 18–20; TEMP 96.5–97.7; O2SAT 95–99
[2024-09-07] MEDS: ALBUTEROL SULF 2.5 MG/0.5ML(0.5%) NEB SOLN NEB PRN (00:17)
[2024-09-07] MEDS: IPRATROPIUM BROM 0.5 MG/2.5ML INH SOL NEB PRN (00:17)
[2024-09-07] MEDS: MELATONIN 5 MG TAB PO ONE ×2 (01:13→23:20)
[2024-09-07 06:19] LABS: Hematocrit 33.7 % (36.0-46.0); Hemoglobin 11.2 g/dL (12.2-16.2); Mean Corpuscular Hemoglobin 27.1 pg (28.0-32.0); Mean Corpuscular Volume 81.6 fL (80.0-100.0); Nucleated Red Blood Cells % 0.0 %
[2024-09-07 06:44] LABS: Alanine Aminotransferase 28 U/L (7-40); Albumin 4.2 g/dL (3.2-4.8); Alkaline Phosphatase 108 U/L (46-116); Anion Gap 13 (5-15); BUN/Creatinine Ratio 15.4 (10.0-20.0); Blood Urea Nitrogen 16 mg/dL (9-23); Calcium 9.1 mg/dL (8.7-10.4); Carbon Dioxide 28 mmol/L (20-31); Chloride 100 mmol/L (98-107); Glucose 83 mg/dL (74-106); Magnesium 2.2 mg/dL (1.6-2.6); Sodium 141 mmol/L (136-145); Total Protein 6.7 g/dL (5.7-8.2)
[2024-09-07 06:45] LABS: Bilirubin, Total 0.4 mg/dL (0.2-1.0)
[2024-09-07 06:46] LABS: Potassium 3.4 mmol/L (3.5-5.1)
[2024-09-07] MEDS: POTASSIUM CHL 20 Meq TABLET PO ONE (09:35)
--- NOTE | 2024-09-07 10:15 | DVHPN2 ---
Subjective Progress Notes Subjective Patient feels better. SOB resolved. Denies CP Denies symptoms of pre-eclampsia, no neurological symptoms Denies any pelvic pain, fever or chills. Cytotec PO given last night and had passage of some blood clots, now lochia is minimal to moderate. Objective PHYSICAL EXAM Physical Exam: Alert, NAD PULM: Unlabored breathing Abd: soft, NT, no uterine tenderness Ext: trace edema, DTR's 2/4 no clonus Labs reviewed ECHO pending read Vital Signs and I&O Vital Signs Date Time Temp Pulse Resp B/P (MAP) Pulse Ox O2 Delivery O2 Flow Rate FiO2 09/07/24 08:28 96 Room Air 0.0 09/07/24 08:28 21 09/07/24 05:55 133/81 09/07/24 05:00 97.3 89 18 97.3 Intake and Output 09/07/24 07:00 Intake Total 775 ml Output Total 2900 ml Balance -2125 ml Intake Oral 500 ml IV Total 275 ml Output Urine Total 2900 ml Lab results Laboratory Tests Test 09/05/24 10:30 09/05/24 10:33 09/05/24 12:46 09/05/24 12:49 Range/Units B-Type Natriuretic Peptide 460.06 0-100 pg/mL White Blood Count 12.3 #H 4.4-10.8 10^3/uL Red Blood Count 3.47 L 4.0-5.20 10^6/uL Hemoglobin 9.6 L 12.2-16.2 g/dL Hematocrit 28.4 L 36.0-46.0 % Mean Corpuscular Volume 81.8 80.0-100.0 fL Mean Corpuscular Hemoglobin 27.6 L 28.0-32.0 pg Mean Corpuscular Hemoglobin Concent 33.8 32.0-36.0 g/dL Red Cell Distribution Width 14.8 H 11.8-14.3 % Platelet Count 394 140-450 10^3/uL Mean Platelet Volume 8.5 6.9-10.8 fL Neutrophils (%) (Auto) 73.8 37.0-80.0 % Lymphocytes (%) (Auto) 19.3 10.0-50.0 % Monocytes (%) (Auto) 5.7 0.0-12.0 % Eosinophils (%) (Auto) 1.0 0.0-7.0 % Basophils (%) (Auto) 0.2 0.0-2.0 % Neutrophils # (Auto) 9.1 H 1.6-8.6 10 ^3/uL Lymphocytes # (Auto) 2.4 0.4-5.4 10 ^3/uL Monocytes # (Auto) 0.7 0-1.3 10 ^3/uL Eosinophils # (Auto) 0.1 0-0.8 10 ^3/uL Basophils # (Auto) 0 0-0.2 10 ^3/uL Nucleated Red Blood Cells 0.0 % D-Dimer, Quantitative 3.68 H 0.0-0.49 mg/L FEU Sodium Level 140 136-145 mmol/L Potassium Level 4.2 3.5-5.1 mmol/L Chloride Level 107 98-107 mmol/L Carbon Dioxide Level 22 20-31 mmol/L Anion Gap 11 5-15 Blood Urea Nitrogen 13 9-23 mg/dL Creatinine 0.74 0.550-1.02 mg/dL Glomerular Filtration Rate Calc 107 >90 mL/min BUN/Creatinine Ratio 17.6 10.0-20.0 Serum Glucose 89 74-106 mg/dL Calcium Level 8.9 8.7-10.4 mg/dL Magnesium Level 2.1 # 1.6-2.6 mg/dL Iron Level 43 L 50-170 ug/dL Total Iron Binding Capacity 481 H 250-425 ug/dL Percent Iron Saturation 8.9 L 15-50 % Ferritin 57.6 10-291 ng/mL Total Bilirubin 0.3 0.2-1.0 mg/dL Direct Bilirubin < 0.1 <0.3 mg/dL Aspartate Amino Transferase (AST) 50 H 13-40 U/L Alanine Aminotransferase (ALT) 34 7-40 U/L Alkaline Phosphatase 115 46-116 U/L Troponin I High Sensitivity 8 </=34 ng/L Total Protein 6.2 5.7-8.2 g/dL Albumin 3.9 3.2-4.8 g/dL Vitamin B12 Level Pending Vitamin D 25-Hydroxy 5.7 L 30.0-100 ng/mL Thyroid Stimulating Hormone (TSH) 1.77 0.55-4.78 uIU/mL Urine Opiates Screen Neg NEGATIVE Urine Fentanyl Screen Neg NEGATIVE Urine Barbiturates Screen Neg NEGATIVE Urine Phencyclidine Screen Neg NEGATIVE Urine Amphetamines Screen Neg NEGATIVE Urine Benzodiazepines Screen Neg NEGATIVE Urine Cocaine Screen Neg NEGATIVE Urine Cannabinoids Screen Neg NEGATIVE Urine Color Colorless Yellow Urine Clarity Clear Clear Urine pH 5.5 5.0-9.0 Urine Specific [place] 1.005 1.001-1.035 Urine Protein Negative Negative Urine Ketones Negative Negative Urine Blood 3+ H Negative /uL Urine Nitrite Negative Negative Urine Bilirubin Negative Negative Urine Urobilinogen Normal Negative mg/dL Urine Leukocyte Esterase 2+ Negative /uL Urine RBC 64 0 - 4 /hpf Urine Microscopic WBC 5 0-5 /HPF Urine Squamous Epithelial Cells Few <5 /hpf Urine Bacteria None seen None Seen /hpf Urine Glucose Normal Normal mg/dL Test 09/05/24 17:40 09/05/24 18:13 09/05/24 18:41 09/05/24 21:05 Range/Units Lactic Acid Level 1.2 0.4-2.0 mmol/L Influenza Type A Antigen Negative Negative Influenza Type B Antigen Negative Negative SARS-CoV-2 Antigen (Rapid) Negative NEGATIVE Troponin I High Sensitivity 13 15 </=34 ng/L Test 09/06/24 03:37 09/07/24 04:10 Range/Units White Blood Count 13.8 H 14.2 H 4.4-10.8 10^3/uL Red Blood Count 3.81 L 4.13 4.0-5.20 10^6/uL Hemoglobin 10.4 L 11.2 L 12.2-16.2 g/dL Hematocrit 31.0 L 33.7 L 36.0-46.0 % Mean Corpuscular Volume 81.3 81.6 80.0-100.0 fL Mean Corpuscular Hemoglobin 27.3 L 27.1 L 28.0-32.0 pg Mean Corpuscular Hemoglobin Concent 33.6 33.2 32.0-36.0 g/dL Red Cell Distribution Width 14.7 H 14.8 H 11.8-14.3 % Platelet Count 452 H 554 H 140-450 10^3/uL Mean Platelet Volume 8.5 8.3 6.9-10.8 fL Neutrophils (%) (Auto) 72.1 64.6 37.0-80.0 % Lymphocytes (%) (Auto) 18.2 25.0 10.0-50.0 % Monocytes (%) (Auto) 8.0 8.4 0.0-12.0 % Eosinophils (%) (Auto) 1.0 1.6 0.0-7.0 % Basophils (%) (Auto) 0.7 0.4 0.0-2.0 % Neutrophils # (Auto) 9.9 H 9.2 H 1.6-8.6 10 ^3/uL Lymphocytes # (Auto) 2.5 3.5 0.4-5.4 10 ^3/uL Monocytes # (Auto) 1.1 1.2 0-1.3 10 ^3/uL Eosinophils # (Auto) 0.1 0.2 0-0.8 10 ^3/uL Basophils # (Auto) 0.1 0.1 0-0.2 10 ^3/uL Nucleated Red Blood Cells 0.0 0.0 % Sodium Level 141 141 136-145 mmol/L Potassium Level 4.0 3.4 L 3.5-5.1 mmol/L Chloride Level 103 100 98-107 mmol/L Carbon Dioxide Level 26 28 20-31 mmol/L Anion Gap 12 13 5-15 Blood Urea Nitrogen 11 16 9-23 mg/dL Creatinine 0.87 1.04 H 0.550-1.02 mg/dL Glomerular Filtration Rate Calc 89 71 >90 mL/min BUN/Creatinine Ratio 12.6 15.4 10.0-20.0 Serum Glucose 95 83 74-106 mg/dL Hemoglobin A1c 5.1 <5.7 % A1C Calcium Level 8.9 9.1 8.7-10.4 mg/dL Total Bilirubin 0.5 0.4 0.2-1.0 mg/dL Aspartate Amino Transferase (AST) 37 32 13-40 U/L Alanine Aminotransferase (ALT) 32 28 7-40 U/L Alkaline Phosphatase 117 H 108 46-116 U/L Total Protein 6.6 6.7 5.7-8.2 g/dL Albumin 4.1 4.2 3.2-4.8 g/dL Triglycerides Level 308 H < 150 mg/dL Cholesterol Level 174 < 200 mg/dL LDL Cholesterol 96 < 100 mg/dL HDL Cholesterol 39 L 40-59 mg/dL Magnesium Level 2.2 1.6-2.6 mg/dL B-Type Natriuretic Peptide 64.57 0-100 pg/mL Assessment and Plan ASSESSMENT AND PLAN Assessment and Plan 1. CHTN with Superimposed pre-eclampsia - BP's better controlled 2. Acute onset SOB with cardiomegaly and BNP suggesting CHF , need to rule out peripartum cardiomyopathy -- Cardiac ECHO pending -- Appreciate Cardio consult and recommendations 3. Thickened endometrium on Pelvic US (incidental finding) - No clinical evidence of endometritis and/ or retained POC's - May probably D/C antibiotics , decision deferred to primary IM team - Repeat TV pelvic US tomorrow a.m. compare endometrium measurement. Plan discussed with: Patient Visit Coding OBGYN Date of Service: Sep 07, 2024 Billing Provider: ALEJANDRINA STEVENS DO HARDNESS TESTER Common Visit Codes: CONSULTATION ONLY HARDNESS TESTER Consultation Codes: [id number]/[id number] INPATIENT CONSULT (HIGH) ALEJANDRINA STEVENS DO Sep 07, 2024 10:15
--- NOTE | 2024-09-07 13:49 | DVHPNRES ---
Progress Note Date Seen: Sep 07, 2024 Resident Creating Document: JEAN SELLERS RESIDENT Has the PT tested + for MRSA If YES, has PT been informed?: Yes Medical Necessity Reason Pt with a Central, PICC or Fol: Yes The following are medically ne: [place] Catheter Subjective Review of Systems 34-year-old female with obesity , history of preeclampsia, day 5 post following of a healthy baby on Sunday (09/01/2024), comes to the ER with complaints of shortness of breath since last 3 days. Shortness of breaths increased on lying down, it starts while resting and since on exertion. She is experiencing dry cough with minimal phlegm for the same duration. She reports having 2 episodes of blood mixed cough since her symptoms started. Developed fatigue for the same duration to the point that she was not able to carry her . She is not breast-feeding. She reports having preeclampsia during , for which she was taking labetalol. She denies any recent travel, sick contacts. Denies any chest pain, fever chills, abdominal pain, urinary symptoms ROS: Today patient seen and examined at the bedside. Patient reported improvement in her shortness of breath and anxiety since admission, reported no active complaints at this time. On inquiry she reports that she passed some clots yesterday after the Cytotec 800 mcg. I counseled her regarding repeat ultrasound tomorrow. Objective vital signs Vital Sign Date Time Temp Pulse Resp B/P (MAP) Pulse Ox O2 Delivery O2 Flow Rate FiO2 09/07/24 12:43 96.5 75 20 130/75 (93) 97 96.5 09/07/24 10:00 Room Air* 0 21 Total Intake and Output 09/06/24 09/06/24 09/07/24 15:00 23:00 07:00 Intake Total 100 ml 75 ml 600 ml Output Total 2000 ml 900 ml Balance 100 ml -1925 ml -300 ml medications Current Medications Medications Dose Ordered Sig/Jeffrey Route Start Time Stop Time Status Last Admin Dose Admin Sodium Chloride 10 ml Q8HR IV 09/05/24 22:00 09/07/24 13:10 10 ML Nitroglycerin 0.4 mg Q5MINP PRN SL 09/05/24 16:45 Enoxaparin Sodium 40 mg DAILY SC 09/06/24 10:00 09/07/24 09:36 40 MG Ergocalciferol 50,000 unit Q7D PO 09/05/24 20:00 09/05/24 20:00 50,000 UNIT Ferrous Sulfate 325 mg MWF PO 09/08/24 10:00 Acetaminophen 650 mg Q4HP PRN PO 09/05/24 23:45 09/06/24 20:21 650 MG Metoclopramide HCl 10 mg Q6HPRN PRN IV 09/06/24 00:30 09/06/24 00:41 10 MG Losartan Potassium 25 mg DAILY PO 09/06/24 10:00 09/06/24 11:02 25 MG Albuterol 2.5 mg Q4HPRN PRN NEB 09/06/24 07:30 09/07/24 00:17 2.5 MG Ipratropium [place] 0.5 mg Q4HPRN PRN NEB 09/06/24 07:30 09/07/24 00:17 0.5 MG Lorazepam 1 mg Q6HP PRN IV 09/06/24 08:30 Piperacillin Sod/ Tazobactam Sod 100 ml @ 25 mls/hr Q8HR IV 09/06/24 14:45 09/07/24 13:10 25 MLS/HR Atorvastatin Calcium 40 mg HS PO 09/06/24 22:00 09/06/24 21:44 40 MG Metoprolol Tartrate 25 mg BID PO 09/06/24 22:00 09/07/24 09:36 25 MG Furosemide 40 mg DAILY IV 09/08/24 06:00 Examination Pt is lying on bed General Appearance: Alert, Oriented X3, Cooperative, Mild distress HEENT: Atraumatic, Mucous membranes moist/pink Respiratory: bilateral breath sounds heard , clear on auscultation today Cardiovascular: Regular rate, Normal S1, Normal S2, No murmurs Abdominal/ : Active bowel sounds, Soft, no distention, no tenderness Extremities: 1+edema resolving, Normal pulses, No tenderness/swelling PV exam: Normal lochia serosa present, no active bleeding. No vaginal edema or infection. Skin: No Significant rash, except past surgical scars Neuro: Normal speech, sensorimotor deficits none Psych/Mental Status: Mental status NL, Mood NL Nurse was there as insulation cutter and former during examination laboratory and microbiology Laboratory Tests 09/07/24 04:10 Test 09/07/24 04:10 Range/Units Serum Glucose 83 74-106 mg/dL Microbiology Date/Time Source Procedure Growth Status 09/06/24 08:33 Nose MRSA Screen - Final Complete 09/05/24 17:40 Blood Blood Culture - Preliminary NO GROWTH AFTER 24 HOURS OF INCUBATION. Resulted 09/05/24 12:46 Voided Urine Urine Culture - Final Complete Labs and/or images reviewed: Labs reviewed by me, Image(s) reviewed by me Problem List/Assessment/Plan Problem List/Assessment/Plan # Acute hypoxic respiratory failure likely due to below # ? New onset Acute systolic vs diastolic CHF, # ? Peripartum cardiomyopathy, # HTN emergency # Hx of Preecclampsia # Hx of Cocaine use # Ruled out PE/ DVT, # Probable Sepsis likely due to below # R/o PNA due to Gram-positive or Gram-negative organism - Medhat status downgraded to tele and upgrade if needed - started on NG drip, discontinued, titrate BP meds to achieve well-controlled BP. DASH diet - Chest x-ray shows cardiomegaly with CHF features, BNP elevated, an ECG shows prolonged QTC, troponin WNL - Echocardiography, pending - Cardiology on board advised, to Continue BB metoprolol 25mg bid. Recommend spironolactone 25mg qd. for better BP control. - Lasix 40 mg IV b.i.d. ordered, switch to daily once today ( 09/07/2024) - Strict urine output measurements - D-dimer elevated, CT angiography, no PE and no Dvt - Ceftriaxone Changed to Zosyn - Pancultures ordered, pending - monitor lab - UDS clean but previous UDS 1 wk ago positive for cocaine use - Pelvic ultrasound showed products of conception, so switched antibiotic to Zosyn - Consulted OBGYN, Recommend close follow up. Rectal Cytotec 800 mcg. Repeat Pelvic US in 48 hrs and no acute INSURANCE PRODUCER intervention indicated at this time # Hypertriglyceridemia - Start on statins # Fe deficiency anemia - Iron panel ordered, low iron - iron po 325 mg # Morbid obesity with BMI 43.6 - Advice on lifestyle modifications upon stabilization # Vit D deciency - repleting Plan discussed with: Patient, Other (rn) Date of Service: Sep 07, 2024 Billing Provider: BRANT SANTOYO MD Common Visit Codes: [id number] INP/OBS CARE(HIGH) JEAN SELLERS RESIDENT Sep 07, 2024 13:49 BRANT SANTOYO MD Sep 07, 2024 23:26
--- NOTE | 2024-09-07 13:59 | DVH ---
XY CHEST PORTABLE, HISTORY: sob COMPARISON: XY CHEST PORTABLE on DOS: 09/05/24 XY CHEST PORTABLE on DOS: 09/05/24 TECHNICAL DATA: 1 view of the chest was obtained. FINDINGS: Lines and tubes: None Cardiomediastinal silhouette: normal Pulmonary vasculature: normal Lung expansion: normal Lung airspace: normal Lung interstitium: normal Pleura: normal Pneumothorax: no Bones: Unremarkable Other: no IMPRESSION: No acute intrathoracic abnormality.
--- NOTE | 2024-09-07 15:09 | DVHSR ---
APPROVED REPORT EXAM: Two-dimensional and M-mode echocardiogram with Doppler and color Doppler. Blood Pressure: 142/82 mmHg INDICATION SOB Cardiomegally DIMENSIONS LVDd4.4 (3.8-5.7cm)LA (2D)3.5 (1.9-4.0cm)Aortic Root3.0 (2.0-3.7cm) LVDs3.3 (2.5-4.0cm)LA (MM) (1.9-4.0cm)Aortic Cusp Exc1.7 (1.5-2.0cm) EF (%) 50.0 (55-70%)Rt. Atrium4.0 (1.9-4.0cm)Asc. Aorta cm IVSd1.0 (0.7-1.1cm)RV (D) (1.8-2.4cm) PWd1.0 (0.7-1.1cm) Mitral Valve MitralMitral Stenosis E wave1.20m/sMV Mean GR.mmHg A wave1.00m/sMV Peak GR.mmHg E/A ratio1.22D MVAcm2 Aortic Valve Aortic ValveAortic Stenosis V11.00m/[place] Mean GR.8mmHg V21.80m/[place] Peak GR.14mmHg LVOT Diameter2.1 (1.8-2.4cm)Doppler AVA1.92cm2 AI P 1/2 [id number] Pulmonic Valve V20.80m/s Conclusion Technically good study. Sinus rhythm. Normal chamber sizes. Valves are normal. EF of 50% with mild inferobasal hypokinesis. Normal right ventricular function. Dopplers unremarkable. Mild TR. Trace aortic insufficiency. No pericardial effusion masses or vegetations.
[2024-09-07 16:10] LABS: Hematocrit 35.3 % (36.0-46.0); Hemoglobin 11.6 g/dL (12.2-16.2); Mean Corpuscular Hemoglobin 26.8 pg (28.0-32.0); Mean Corpuscular Volume 81.8 fL (80.0-100.0); Nucleated Red Blood Cells % 0.0 %
--- NOTE | 2024-09-07 21:27 | DVHPN2 ---
Subjective Denies chest pain or shortness of breath No cardiac events reported Changes from previous H/P or p: No Changes Objective Vitals Vital Signs Date Time Temp Pulse Resp B/P (MAP) Pulse Ox O2 Delivery O2 Flow Rate FiO2 09/07/24 19:00 97 Room Air* 0 21 09/07/24 17:00 97.7 86 20 131/96 (108) 97.7 Intake/Output Intake and Output 09/07/24 07:00 Intake Total 775 ml Output Total 2900 ml Balance -2125 ml Intake Oral 500 ml IV Total 275 ml Output Urine Total 2900 ml Cardiovascular: Regular rate, Normal S1 Medications Current Medications Medications Dose Ordered Sig/Jeffrey Route Start Time Stop Time Status Last Admin Dose Admin Sodium Chloride 10 ml Q8HR IV 09/05/24 22:00 09/07/24 13:10 10 ML Nitroglycerin 0.4 mg Q5MINP PRN SL 09/05/24 16:45 Enoxaparin Sodium 40 mg DAILY SC 09/06/24 10:00 09/07/24 09:36 40 MG Ergocalciferol 50,000 unit Q7D PO 09/05/24 20:00 09/05/24 20:00 50,000 UNIT Ferrous Sulfate 325 mg MWF PO 09/08/24 10:00 Acetaminophen 650 mg Q4HP PRN PO 09/05/24 23:45 09/06/24 20:21 650 MG Metoclopramide HCl 10 mg Q6HPRN PRN IV 09/06/24 00:30 09/06/24 00:41 10 MG Losartan Potassium 25 mg DAILY PO 09/06/24 10:00 09/06/24 11:02 25 MG Albuterol 2.5 mg Q4HPRN PRN NEB 09/06/24 07:30 09/07/24 00:17 2.5 MG Ipratropium [place] 0.5 mg Q4HPRN PRN NEB 09/06/24 07:30 09/07/24 00:17 0.5 MG Lorazepam 1 mg Q6HP PRN IV 09/06/24 08:30 Piperacillin Sod/ Tazobactam Sod 100 ml @ 25 mls/hr Q8HR IV 09/06/24 14:45 09/07/24 13:10 25 MLS/HR Atorvastatin Calcium 40 mg HS PO 09/06/24 22:00 09/06/24 21:44 40 MG Metoprolol Tartrate 25 mg BID PO 09/06/24 22:00 09/07/24 09:36 25 MG Furosemide 40 mg DAILY IV 09/08/24 06:00 Laboratory Results Laboratory Tests 09/07/24 04:10 09/07/24 15:57 Chemistry Test 09/07/24 04:10 Albumin 4.2 g/dL (3.2-4.8) Calcium Level 9.1 mg/dL (8.7-10.4) Magnesium Level 2.2 mg/dL (1.6-2.6) Total Protein 6.7 g/dL (5.7-8.2) Cardiac Markers Test 09/07/24 04:10 B-Type Natriuretic Peptide 64.57 pg/mL (0-100) LFT Test 09/07/24 04:10 Alanine Aminotransferase (ALT) 28 U/L (7-40) Alkaline Phosphatase 108 U/L (46-116) Aspartate Amino Transferase (AST) 32 U/L (13-40) Total Bilirubin 0.4 mg/dL (0.2-1.0) Urinalysis Test 09/05/24 12:49 Urine Color Colorless (Yellow) Urine Clarity Clear (Clear) Urine pH 5.5 (5.0-9.0) Urine Specific [place] 1.005 (1.001-1.035) Urine Protein Negative (Negative) Urine Ketones Negative (Negative) Urine Blood 3+ /uL (Negative) H Urine Nitrite Negative (Negative) Urine Bilirubin Negative (Negative) Urine Urobilinogen Normal mg/dL (Negative) Urine Leukocyte Esterase 2+ /uL (Negative) Urine RBC 64 /hpf (0 - 4) Urine Microscopic WBC 5 /HPF (0-5) Urine Squamous Epithelial Cells Few /hpf (<5) Urine Bacteria None seen /hpf (None Seen) Urine Glucose Normal mg/dL (Normal) Microbiology Microbiology Date/Time Source Procedure Growth Status 09/06/24 08:33 Nose MRSA Screen - Final Complete 09/05/24 17:40 Blood Blood Culture - Preliminary NO GROWTH AFTER 48 HOURS OF INCUBATION. Resulted 09/05/24 12:46 Voided Urine Urine Culture - Final Complete Assessment/Plan Assessment/Plan 1. and shortness of breath---likely new-onset heart failure, rule out peripartum cardiomyopathy * Day five with acute dyspnea, orthopnea, and edema * Chest x-ray shows cardiomegaly with CHF features, BNP elevated, an ECG shows prolonged QTC * Given her history of preeclampsia and hypertension, she is at increased risk for peripartum cardiomyopathy * Continue BB metoprolol 25mg bid. Recommend spironolactone 25mg qd. for better BP control. * Echocardiogram to evaluate cardiac function * Continue with diuretics * Strict intake and output * Close cardiac surveillance 2. Hypertension in --history of preeclampsia * titrate BP meds to achieve well-controlled BP. * DASH diet 3. Hypertriglyceridemia * Start on statins 4. Obesity * Lifestyle modification counseled on diet, weight loss, and regular exercise 5. PE, ruled out * CTA is negative for PE Plan/Recommendation (Dr. Montano ): Acute heart failure with mildly reduced ejection fraction secondary to hypertensive heart disease and preeclampsia Suspected peripartum cardiomyopathy Hypertensive heart disease Dyslipidemia Echocardiogram reveals ejection fraction of 50% and evidence of mild inferobasal hypokinesis. Cardiology recommends initiation of GDMT for HF . Continue metoprolol for beta blockade. Start spironolactone 25 mg daily and Jardiance 10 mg daily to support cardiac remodeling and volume management. For lipid optimization, reduce atorvastatin to 20 mg daily and initiate fenofibrate 100 mg daily to address elevated triglycerides. Monitor renal function, electrolytes, and blood pressure closely with medication changes. Outpatient cardiology follow-up is recommended for ongoing management and reassessment of cardiac function. Plan discussed with: Patient Date of Service: Sep 07, 2024 Billing Provider: PAIGE MONTANO Sr., MD Common Visit Codes: CONSULT ONLY Consultation Codes: [id number] CONSULT <45MIN SAUL VARGAS Sep 07, 2024 21:27
[2024-09-07] MEDS: ATORVASTATIN 20 MG TAB PO SCH (22:00)
[2024-09-07] MEDS: SPIRONOLACTONE 25 MG TAB PO ONE (23:20)
[2024-09-08] VITALS (7 sets, daily range): BP systolic 106–140; BP diastolic 74–94; PULSE 75–92; RESP 18–20; TEMP 36.7; O2SAT 95–98
--- NOTE | 2024-09-08 01:48 | DVH ---
INDICATION: Compare to 09/06/24 TECHNIQUE: Multiple real-time grayscale transabdominal sonographic images along with color and duplex Doppler of the uterus and ovaries were obtained. COMPARISON: US PELVIC on DOS: 09/06/24 FINDINGS: The uterus measures 14.4 x 9.0 x 7.8 cm. The endometrial stripe measures 2.2 cm with probab le fluid. The uterus is moderately heterogeneous in its echotexture with a hypoechoic structure withi n the uterine body measuring 2.2 cm. Right ovary measures 3.3 x 2.8 x 1.7 cm with normal Doppler color flow. Left ovary measures 3.5 x 2.5 x 1.7 cm with normal Doppler color flow and contains a simple appearing cyst versus dominant follicle measuring 14 x 10 x 7 mm. IMPRESSION: 1. Heterogeneous uterus and moderately thickened endometrial echo complex with probable fluid. 2. Uterine body fibroid. 3. Simple appearing left ovarian cyst versus dominant follicle.
[2024-09-08] MEDS: FUROSEMIDE 40 MG/4 ML VIAL IV SCH (05:47)
--- NOTE | 2024-09-08 06:26 | DVHPN2 ---
Subjective Progress Notes Subjective Patient feeling better. Denying heavy vaginal bleeding or passage of clots Objective PHYSICAL EXAM Physical Exam: Alert, NAD Abd Soft , NT Vital Signs and I&O Vital Signs Date Time Temp Pulse Resp B/P (MAP) Pulse Ox O2 Delivery O2 Flow Rate FiO2 09/08/24 05:00 95.4 81 20 128/85 (99) 95 95.4 09/07/24 20:00 Room Air* 0 21 Intake and Output 09/08/24 07:00 Intake Total 1388 ml Balance 1388 ml Intake Oral 1288 ml IV Total 100 ml Lab results Laboratory Tests Test 09/05/24 10:30 09/05/24 10:33 09/05/24 12:46 09/05/24 12:49 Range/Units B-Type Natriuretic Peptide 460.06 0-100 pg/mL White Blood Count 12.3 #H 4.4-10.8 10^3/uL Red Blood Count 3.47 L 4.0-5.20 10^6/uL Hemoglobin 9.6 L 12.2-16.2 g/dL Hematocrit 28.4 L 36.0-46.0 % Mean Corpuscular Volume 81.8 80.0-100.0 fL Mean Corpuscular Hemoglobin 27.6 L 28.0-32.0 pg Mean Corpuscular Hemoglobin Concent 33.8 32.0-36.0 g/dL Red Cell Distribution Width 14.8 H 11.8-14.3 % Platelet Count 394 140-450 10^3/uL Mean Platelet Volume 8.5 6.9-10.8 fL Neutrophils (%) (Auto) 73.8 37.0-80.0 % Lymphocytes (%) (Auto) 19.3 10.0-50.0 % Monocytes (%) (Auto) 5.7 0.0-12.0 % Eosinophils (%) (Auto) 1.0 0.0-7.0 % Basophils (%) (Auto) 0.2 0.0-2.0 % Neutrophils # (Auto) 9.1 H 1.6-8.6 10 ^3/uL Lymphocytes # (Auto) 2.4 0.4-5.4 10 ^3/uL Monocytes # (Auto) 0.7 0-1.3 10 ^3/uL Eosinophils # (Auto) 0.1 0-0.8 10 ^3/uL Basophils # (Auto) 0 0-0.2 10 ^3/uL Nucleated Red Blood Cells 0.0 % D-Dimer, Quantitative 3.68 H 0.0-0.49 mg/L FEU Sodium Level 140 136-145 mmol/L Potassium Level 4.2 3.5-5.1 mmol/L Chloride Level 107 98-107 mmol/L Carbon Dioxide Level 22 20-31 mmol/L Anion Gap 11 5-15 Blood Urea Nitrogen 13 9-23 mg/dL Creatinine 0.74 0.550-1.02 mg/dL Glomerular Filtration Rate Calc 107 >90 mL/min BUN/Creatinine Ratio 17.6 10.0-20.0 Serum Glucose 89 74-106 mg/dL Calcium Level 8.9 8.7-10.4 mg/dL Magnesium Level 2.1 # 1.6-2.6 mg/dL Iron Level 43 L 50-170 ug/dL Total Iron Binding Capacity 481 H 250-425 ug/dL Percent Iron Saturation 8.9 L 15-50 % Ferritin 57.6 10-291 ng/mL Total Bilirubin 0.3 0.2-1.0 mg/dL Direct Bilirubin < 0.1 <0.3 mg/dL Aspartate Amino Transferase (AST) 50 H 13-40 U/L Alanine Aminotransferase (ALT) 34 7-40 U/L Alkaline Phosphatase 115 46-116 U/L Troponin I High Sensitivity 8 </=34 ng/L Total Protein 6.2 5.7-8.2 g/dL Albumin 3.9 3.2-4.8 g/dL Vitamin B12 Level Pending Vitamin D 25-Hydroxy 5.7 L 30.0-100 ng/mL Thyroid Stimulating Hormone (TSH) 1.77 0.55-4.78 uIU/mL Urine Opiates Screen Neg NEGATIVE Urine Fentanyl Screen Neg NEGATIVE Urine Barbiturates Screen Neg NEGATIVE Urine Phencyclidine Screen Neg NEGATIVE Urine Amphetamines Screen Neg NEGATIVE Urine Benzodiazepines Screen Neg NEGATIVE Urine Cocaine Screen Neg NEGATIVE Urine Cannabinoids Screen Neg NEGATIVE Urine Color Colorless Yellow Urine Clarity Clear Clear Urine pH 5.5 5.0-9.0 Urine Specific [place] 1.005 1.001-1.035 Urine Protein Negative Negative Urine Ketones Negative Negative Urine Blood 3+ H Negative /uL Urine Nitrite Negative Negative Urine Bilirubin Negative Negative Urine Urobilinogen Normal Negative mg/dL Urine Leukocyte Esterase 2+ Negative /uL Urine RBC 64 0 - 4 /hpf Urine Microscopic WBC 5 0-5 /HPF Urine Squamous Epithelial Cells Few <5 /hpf Urine Bacteria None seen None Seen /hpf Urine Glucose Normal Normal mg/dL Test 09/05/24 17:40 09/05/24 18:13 09/05/24 18:41 09/05/24 21:05 Range/Units Lactic Acid Level 1.2 0.4-2.0 mmol/L Influenza Type A Antigen Negative Negative Influenza Type B Antigen Negative Negative SARS-CoV-2 Antigen (Rapid) Negative NEGATIVE Troponin I High Sensitivity 13 15 </=34 ng/L Test 09/06/24 03:37 09/07/24 04:10 09/07/24 15:57 Range/Units White Blood Count 13.8 H 14.2 H 15.5 H 4.4-10.8 10^3/uL Red Blood Count 3.81 L 4.13 4.32 4.0-5.20 10^6/uL Hemoglobin 10.4 L 11.2 L 11.6 L 12.2-16.2 g/dL Hematocrit 31.0 L 33.7 L 35.3 L 36.0-46.0 % Mean Corpuscular Volume 81.3 81.6 81.8 80.0-100.0 fL Mean Corpuscular Hemoglobin 27.3 L 27.1 L 26.8 L 28.0-32.0 pg Mean Corpuscular Hemoglobin Concent 33.6 33.2 32.8 32.0-36.0 g/dL Red Cell Distribution Width 14.7 H 14.8 H 14.5 H 11.8-14.3 % Platelet Count 452 H 554 H 579 H 140-450 10^3/uL Mean Platelet Volume 8.5 8.3 7.8 6.9-10.8 fL Neutrophils (%) (Auto) 72.1 64.6 65.8 37.0-80.0 % Lymphocytes (%) (Auto) 18.2 25.0 22.9 10.0-50.0 % Monocytes (%) (Auto) 8.0 8.4 9.7 0.0-12.0 % Eosinophils (%) (Auto) 1.0 1.6 1.3 0.0-7.0 % Basophils (%) (Auto) 0.7 0.4 0.3 0.0-2.0 % Neutrophils # (Auto) 9.9 H 9.2 H 10.2 H 1.6-8.6 10 ^3/uL Lymphocytes # (Auto) 2.5 3.5 3.5 0.4-5.4 10 ^3/uL Monocytes # (Auto) 1.1 1.2 1.5 H 0-1.3 10 ^3/uL Eosinophils # (Auto) 0.1 0.2 0.2 0-0.8 10 ^3/uL Basophils # (Auto) 0.1 0.1 0.1 0-0.2 10 ^3/uL Nucleated Red Blood Cells 0.0 0.0 0.0 % Sodium Level 141 141 136-145 mmol/L Potassium Level 4.0 3.4 L 3.5-5.1 mmol/L Chloride Level 103 100 98-107 mmol/L Carbon Dioxide Level 26 28 20-31 mmol/L Anion Gap 12 13 5-15 Blood Urea Nitrogen 11 16 9-23 mg/dL Creatinine 0.87 1.04 H 0.550-1.02 mg/dL Glomerular Filtration Rate Calc 89 71 >90 mL/min BUN/Creatinine Ratio 12.6 15.4 10.0-20.0 Serum Glucose 95 83 74-106 mg/dL Hemoglobin A1c 5.1 <5.7 % A1C Calcium Level 8.9 9.1 8.7-10.4 mg/dL Total Bilirubin 0.5 0.4 0.2-1.0 mg/dL Aspartate Amino Transferase (AST) 37 32 13-40 U/L Alanine Aminotransferase (ALT) 32 28 7-40 U/L Alkaline Phosphatase 117 H 108 46-116 U/L Total Protein 6.6 6.7 5.7-8.2 g/dL Albumin 4.1 4.2 3.2-4.8 g/dL Triglycerides Level 308 H < 150 mg/dL Cholesterol Level 174 < 200 mg/dL LDL Cholesterol 96 < 100 mg/dL HDL Cholesterol 39 L 40-59 mg/dL Magnesium Level 2.2 1.6-2.6 mg/dL B-Type Natriuretic Peptide 64.57 0-100 pg/mL PATIENT: EFRAÍN SMITHTRISHACCT: [id number]: [id number] : 1990 LOC: [facility] RO[facility] AGE / SEX: 34 / F ADM STATUS: ADM IN SERVICE 0600 ORDERING PHYSICIAN: ALEJANDRINA STEVENS DO PROCEDURE(s): PELUS - PELVIC REASON: Compare to 09/06/24 ORDER NUMBER(s): [id number], ACCESSION NUMBER(s): [id number] INDICATION: Compare to 09/06/24 TECHNIQUE: Multiple real-time grayscale transabdominal sonographic images along with color and duplex Doppler of the uterus and ovaries were obtained. COMPARISON: US PELVIC on DOS: 09/06/24 FINDINGS: The uterus measures 14.4 x 9.0 x 7.8 cm. The endometrial stripe measures 2.2 cm with probable fluid. The uterus is moderately heterogeneous in its echotexture with a hypoechoic structure within the uterine body measuring 2.2 cm. Right ovary measures 3.3 x 2.8 x 1.7 cm with normal Doppler color flow. Left ovary measures 3.5 x 2.5 x 1.7 cm with normal Doppler color flow and contains a simple appearing cyst versus dominant follicle measuring 14 x 10 x 7 mm. IMPRESSION: 1. Heterogeneous uterus and moderately thickened endometrial echo complex with probable fluid. 2. Uterine body fibroid. 3. Simple appearing left ovarian cyst versus dominant follicle. ATED BY: DEMETRIO GALLAGHER MD DICTATED DATE/TIME: 09/08/24 0145 Assessment and Plan ASSESSMENT AND PLAN Assessment and Plan No evidence of retained POC's or endometritis -- repeat US shows 2.2cm endometrial stripe, decreased from 5.3 cm, and likely fluid (expected after a vaginal delivery) CHTN, BP's better controllled Plan: No acute BUSINESS COORDINATOR intervention indicated at this time BUSINESS COORDINATOR will sign off. F/U outpatient for routine care My orders: Orders - ALEJANDRINA STEVENS DO Pelvic (09/08/24 06:00) Plan discussed with: Patient Visit Coding OBGYN Date of Service: Sep 08, 2024 Billing Provider: ALEJANDRINA STEVENS DO CASH REGISTER REPAIRER Common Visit Codes: CONSULTATION ONLY CASH REGISTER REPAIRER Consultation Codes: 38399-G/U INPATIENT CONSULT (LOW) ALEJANDRINA STEVENS DO Sep 08, 2024 06:26
[2024-09-08 07:17] LABS: Chloride 103 mmol/L (98-107); Potassium 4.6 mmol/L (3.5-5.1); Sodium 141 mmol/L (136-145)
[2024-09-08 07:18] LABS: Anion Gap 14 (5-15); Carbon Dioxide 24 mmol/L (20-31)
[2024-09-08 07:19] LABS: Calcium 9.4 mg/dL (8.7-10.4)
[2024-09-08 07:24] LABS: BUN/Creatinine Ratio 19.6 (10.0-20.0); Blood Urea Nitrogen 18 mg/dL (9-23); Glucose 75 mg/dL (74-106)
[2024-09-08] MEDS: FERROUS SULFATE 325mg EC TAB PO SCH (09:08)
[2024-09-08] MEDS: EMPAGLIFLOZIN 10 MG TAB PO SCH (09:08)
[2024-09-08] MEDS: SPIRONOLACTONE 25 MG TAB PO SCH (09:16)
[2024-09-08] MEDS ORDERED: FENOFIBRATE PO SCH (10:00)
[2024-09-08 10:18] LABS: Hemoglobin 11.2 g/dL (12.2-16.2)
[2024-09-08 10:20] LABS: Hematocrit 34.4 % (36.0-46.0); Mean Corpuscular Hemoglobin 27.2 pg (28.0-32.0); Mean Corpuscular Volume 83.7 fL (80.0-100.0); Nucleated Red Blood Cells % 0.1 %
[2024-09-08] MEDS ORDERED: AUG875T PO (13:12)
--- NOTE | 2024-09-08 13:38 | ECG ---
[facility] Test Date: 2024-09-06 Test Time: 00:39:15 Pat Name: FRANCO SMITH Department: ED Room: [facility] Gender: F [employer]room Press Operator: yari : 1990 Requested By: SAUL VARGAS Order Number: [id number] Reading MD: Henri Montano Measurements Intervals [place] Rate: 98 P: 61 TX: 125 QRS: 36 QRSD: 83 T: 37 QT: 406 QTc: 519 Interpretive Statements Sinus rhythm Ventricular premature complex Aberrant complex RSR' in V1 or V2, probably normal variant Prolonged QT interval Electronically Signed On 09-10-2024 17:46:07 PDT by Henri Montano Please click the below link to view image of tracing.
--- NOTE | 2024-09-08 17:48 | DVHDSRES ---
Discharge Summary Date of Admission Resident Creating Document: DARYA CHARLES RESIDENT Sep 05, 2024 at 16:42 Date of Discharge: Sep 08, 2024 Admitting Diagnosis Shortness of Breath Wounds: No wounds Labs/Diagnostic Data: Laboratory Results Test 09/08/24 05:09 09/07/24 04:10 09/06/24 03:37 09/05/24 21:05 White Blood Count 12.1 10^3/uL (4.4-10.8) Red Blood Count 4.12 10^6/uL (4.0-5.20) Hemoglobin 11.2 g/dL (12.2-16.2) Hematocrit 34.4 % (36.0-46.0) Mean Corpuscular Volume 83.7 fL (80.0-100.0) Mean Corpuscular Hemoglobin 27.2 pg (28.0-32.0) Mean Corpuscular Hemoglobin Concent 32.5 g/dL (32.0-36.0) Red Cell Distribution Width 14.9 % (11.8-14.3) Platelet Count 569 10^3/uL (140-450) Mean Platelet Volume 8.4 fL (6.9-10.8) Neutrophils (%) (Auto) 62.9 % (37.0-80.0) Lymphocytes (%) (Auto) 25.8 % (10.0-50.0) Monocytes (%) (Auto) 8.7 % (0.0-12.0) Eosinophils (%) (Auto) 2.1 % (0.0-7.0) Basophils (%) (Auto) 0.5 % (0.0-2.0) Neutrophils # (Auto) 7.6 10 ^3/uL (1.6-8.6) Lymphocytes # (Auto) 3.1 10 ^3/uL (0.4-5.4) Monocytes # (Auto) 1.1 10 ^3/uL (0-1.3) Eosinophils # (Auto) 0.3 10 ^3/uL (0-0.8) Basophils # (Auto) 0.1 10 ^3/uL (0-0.2) Nucleated Red Blood Cells 0.1 % Sodium Level 141 mmol/L (136-145) Potassium Level 4.6 mmol/L (3.5-5.1) Chloride Level 103 mmol/L (98-107) Carbon Dioxide Level 24 mmol/L (20-31) Anion Gap 14 (5-15) Blood Urea Nitrogen 18 mg/dL (9-23) Creatinine 0.92 mg/dL (0.550-1.02) Glomerular Filtration Rate Calc 83 mL/min (>90) BUN/Creatinine Ratio 19.6 (10.0-20.0) Serum Glucose 75 mg/dL (74-106) Calcium Level 9.4 mg/dL (8.7-10.4) Magnesium Level 2.2 mg/dL (1.6-2.6) Total Bilirubin 0.4 mg/dL (0.2-1.0) Aspartate Amino Transferase (AST) 32 U/L (13-40) Alanine Aminotransferase (ALT) 28 U/L (7-40) Alkaline Phosphatase 108 U/L (46-116) B-Type Natriuretic Peptide 64.57 pg/mL (0-100) Total Protein 6.7 g/dL (5.7-8.2) Albumin 4.2 g/dL (3.2-4.8) Hemoglobin A1c 5.1 % A1C (<5.7) Triglycerides Level 308 mg/dL (< 150) Cholesterol Level 174 mg/dL (< 200) LDL Cholesterol 96 mg/dL (< 100) HDL Cholesterol 39 mg/dL (40-59) Troponin I High Sensitivity 15 ng/L (</=34) Test 09/05/24 18:13 09/05/24 17:40 09/05/24 12:49 09/05/24 12:46 Influenza Type A Antigen Negative (Negative) Influenza Type B Antigen Negative (Negative) SARS-CoV-2 Antigen (Rapid) Negative (NEGATIVE) Lactic Acid Level 1.2 mmol/L (0.4-2.0) Urine Color Colorless (Yellow) Urine Clarity Clear (Clear) Urine pH 5.5 (5.0-9.0) Urine Specific [place] 1.005 (1.001-1.035) Urine Protein Negative (Negative) Urine Ketones Negative (Negative) Urine Blood 3+ /uL (Negative) Urine Nitrite Negative (Negative) Urine Bilirubin Negative (Negative) Urine Urobilinogen Normal mg/dL (Negative) Urine Leukocyte Esterase 2+ /uL (Negative) Urine RBC 64 /hpf (0 - 4) Urine Microscopic WBC 5 /HPF (0-5) Urine Squamous Epithelial Cells Few /hpf (<5) Urine Bacteria None seen /hpf (None Seen) Urine Glucose Normal mg/dL (Normal) Urine Opiates Screen Neg (NEGATIVE) Urine Fentanyl Screen Neg (NEGATIVE) Urine Barbiturates Screen Neg (NEGATIVE) Urine Phencyclidine Screen Neg (NEGATIVE) Urine Amphetamines Screen Neg (NEGATIVE) Urine Benzodiazepines Screen Neg (NEGATIVE) Urine Cocaine Screen Neg (NEGATIVE) Urine Cannabinoids Screen Neg (NEGATIVE) Test 09/05/24 10:33 D-Dimer, Quantitative 3.68 mg/L FEU (0.0-0.49) Iron Level 43 ug/dL (50-170) Total Iron Binding Capacity 481 ug/dL (250-425) Percent Iron Saturation 8.9 % (15-50) Ferritin 57.6 ng/mL (10-291) Direct Bilirubin < 0.1 mg/dL (<0.3) Vitamin B12 Level 335 pg/mL (211-911) Vitamin D 25-Hydroxy 5.7 ng/mL (30.0-100) Thyroid Stimulating Hormone (TSH) 1.77 uIU/mL (0.55-4.78) Other Laboratory Tests 09/08/24 05:09 Brief Hx & Hospital Course: Patient is a 34-year-old female, A1, with prior history of preeclampsia in her recent , presented to the ED with chief complaint of shortness of breaths. Per the patient, she vaginally delivered a healthy baby 5 days prior on 09/01/2024. She refers that when 3 days prior to presentation she presented progressively worsening shortness of breath, exacerbated by lying flat, associated with bilateral pedal swelling, hand swelling, and facial swelling. On evaluation in the ED, was hypertensive with BP readings of 164/110. Initial labs show WBCs 12.3, Hb 9.6, PLT 394, sodium 140, potassium 4.2, creatinine 1.04, BUN 13, lactic acid 1.2, troponins negative, BNP 460.06, UA significant for UTI, UDS negative, and negative respiratory viral panel. 12 lead EKG performed in the ED showed sinus rhythm with borderline prolonged QT interval. Chest Xray showed cardiomegaly with CHF, CT angiography shows no pulmonary embolism, CHF /volume overload with mild cardiomegaly, interstitial and alveolar pulmonary edema, and moderate bilateral pleural effusions, dilated main pulmonary artery which can be seen in the setting of pulmonary hypertension. Patient was given breathing treatments and IV Lasix, and was admitted for further workup and monitoring. Patient was seen by Cardiology who stated possible peripartum cardiomyopathy and recommended to continue IV diuresis relief of volume overload with initiation of blood pressure medications and monitoring of renal function and urine output. Echocardiogram shows normal chamber sizes, EF of 50% with inferobasal hypokinesis, normal right ventricular function. Patient was started on GDMT. Due to concerns of increasing WBC count, gynecology was consulted to rule out retained products of conception. Vaginal ultrasound is measuring 15.8 x 10.9 x 10.5 cm in length with an endometrial stripe of 53 mm with heterogeneous echogenic material in the uterine canal. She was subsequently started on Cytotec p.o. presented passage of blood clots. Second ultrasound was ordered to re-evaluate potential of retained products of perceptual which showed heterogeneous uterus and moderately thickened endometrial echo complex with probable fluids which gynecology interprets as expected changes following vaginal delivery. Per Gynecology, D&C was not indicated. Patient has progressed favorably. On evaluation today, patient states she feels well, states the shortness of breath and edema have resolved. She sleeping well, tolerating oral diet, and ambulating without difficulty. Follow up labs show improvements in leukocytosis, blood cultures are negative, urine culture with insignificant findings. She is considered safe for discharge with PO antibiotics to complete treatment as GDMT. She has been given a follow up appointment in the discharge clinic, as well recommendations to establish care with a drying machine operator for continued monitoring. Medications and lifestyle modifications have been thoroughly explained. She states she understands and agrees. Physical Exam: General: Patient is comfortable, alert and oriented in person place and time. Patient following commands HEENT: Normocephalic, atraumatic, EOM intact, pink conjunctiva, pink moist mucous membrane, no facial edema Respiratory/pulmonary: Bilateral expansion, clear lungs bilaterally, vesicular murmurs present in almost all lung samayoa, no associated crackles or wheezes. Cardiovascular: Normal RRR, no accessory sounds auscultated Abdomen: Obese, abdomen nondistended, normal bowel sounds, tympanic to percussion, no pain to palpation in any of the abdominal quadrants, no palpable masses. Extremities: No deformities, no edema present in upper or lower extremities, normal pulses Skin: No rashes or pruritus Neurological: Intact cranial nerves with no focal neurologic deficits Consults/Reason for consult Cardiology was consulted due to suspicion of peripartum cardiomyopathy OBGYN consulted due suspicion of retained products of conception Operations or Procedures INDICATION: sob TECHNIQUE: Frontal view of the chest. COMPARISON: None FINDINGS: Cardiomegaly with CHF. There is no evidence of pleural disease. The lungs are clear. The bony structures of the chest are intact without fracture. IMPRESSION: 1. Cardiomegaly with CHF. PROCEDURE(s): CTACH - CT ANGIO CHEST CONTRAST REASON: SOB ORDER NUMBER(s): [id number], ACCESSION NUMBER(s): [id number] CLINICAL HISTORY: SOB TECHNIQUE: CT angiogram of the chest was performed with intravenous contrast. 100 mL ml of omnipaque 300 was administered intravenously. 3D MIP reconstructed images were created and archived on the PACS system. This exam was performed according to our departmental dose optimization program. Up-to-date CT equipment and radiation dose reduction techniques are utilized as appropriate. CTDI: DLP: 2100.93 WID: COMPARISON: None FINDINGS: Lower Neck: Unremarkable Axilla, Mediastinum and Aneta: Mildly prominent bilateral axillary lymph nodes. No pathologically enlarged mediastinal or hilar lymph nodes. Heart and Great Vessels: Mild cardiomegaly with small pericardial fluid. The thoracic aorta is patent and normal caliber. Dilatation of the main pulmonary artery measuring 3.6 cm on series 2, image 82. There is no central , segmental, or definite subsegmental pulmonary artery filling defect to suggest pulmonary embolism. Airway, Lungs and Pleura: Trachea and central airways are patent. There is interlobular septal thickening of the lungs. There is patchy and confluent consolidative and ground-glass opacities in the lungs. Moderate bilateral pleural effusions, greater on the right. No pneumothorax. Chest Wall and Osseous Structures: No destructive osseous lesion. Minor thoracic spondylosis. Upper abdomen: Reflux of contrast into the IVC in the hepatic veins. No acute abnormality. IMPRESSION: No pulmonary embolism. CHF/volume overload, with mild cardiomegaly, interstitial and alveolar pulmonary edema, and moderate bilateral pleural effusions. Dilated main pulmonary artery which can be seen in the setting of pulmonary hypertension. Technique: Real-time ultrasound imaging, with color Doppler and compression of the bilateral common femoral vein, femoral vein, greater saphenous vein, and popliteal vein. Indication: r/o dvt Comparison: None Findings: There is normal compressibility and flow augmentation in all of the imaged deep veins. There are no filling defects. Impression: No evidence of DVT in the bilateral lower extremities US PELVIC HISTORY: any abscess COMPARISON: None TECHNIQUE: Transabdominal images with color and spectral doppler were obtained of the pelvis and ovaries. FINDINGS: Uterus: - Measures 15.8 x 10.9 x 10.5 cm in length. - Echogenicity: Normal - Mass lesions: None - Endometrial stripe: 53 mm - Cervix: Normal. Right ovary: - Not seen. Left ovary: - Not seen. Adnexal masses: None Free fluid: None Other: None IMPRESSION: Heterogeneous echogenic material in the uterine canal can be seen with retained products of conception. XY CHEST PORTABLE, HISTORY: sob COMPARISON: XY CHEST PORTABLE on DOS: 09/05/24 XY CHEST PORTABLE on DOS: 09/05/24 TECHNICAL DATA: 1 view of the chest was obtained. FINDINGS: Lines and tubes: None Cardiomediastinal silhouette: normal Pulmonary vasculature: normal Lung expansion: normal Lung airspace: normal Lung interstitium: normal Pleura: normal Pneumothorax: no Bones: Unremarkable Other: no IMPRESSION: No acute intrathoracic abnormality. INDICATION: Compare to 09/06/24 TECHNIQUE: Multiple real-time grayscale transabdominal sonographic images along with color and duplex Doppler of the uterus and ovaries were obtained. COMPARISON: US PELVIC on DOS: 09/06/24 FINDINGS: The uterus measures 14.4 x 9.0 x 7.8 cm. The endometrial stripe measures 2.2 cm with probable fluid. The uterus is moderately heterogeneous in its echotexture with a hypoechoic structure within the uterine body measuring 2.2 cm. Right ovary measures 3.3 x 2.8 x 1.7 cm with normal Doppler color flow. Left ovary measures 3.5 x 2.5 x 1.7 cm with normal Doppler color flow and contains a simple appearing cyst versus dominant follicle measuring 14 x 10 x 7 mm. IMPRESSION: 1. Heterogeneous uterus and moderately thickened endometrial echo complex with probable fluid. 2. Uterine body fibroid. 3. Simple appearing left ovarian cyst versus dominant follicle. Condition at Discharge: Stable Final Diagnosis/Problems List Acute Peripartum Cardiomyopathy Possible Chronic Diastolic Heart Failure Acute hypoxic respiratory failure secondary to above Sepsis, likely secondary to UTI Hypertensive emergency, resolved Likely Chronic Hypertension History of preeclampsia in previous -S/p Vaginal deliver 09/08/2024 -Retained products of conception ruled out -Iron deficiency anemia likely due to above Pneumonia, ruled out PE, ruled out DVT, ruled Hyperlipidemia Morbid obesity, 40.8 kg/m2 Discharge Disposition: Home Discharge Instruct/Medications Diet: Cardiac 2g Na,low cholest Activity: No Restrictions, As Tolerated Follow Up/Referral: Follow up in discharge clinic in 1 week Follow up with PCP and Application Administrator Follow up labs: CMP in 2 weeks Medications: Augmentin 875 mg PO BID 5 days Docusate Sodium 200 mg PO PRN 30 days Ferrous sulfate 1 tab PO daily for 30 days Ibuprofen 600 mg PO q6 NE Labetalol 300 mg PO BID 30 days Losartan 1 tab PO 30 days Furosemide 20 mg 1 tab PO daily PRN Metoprolol tartrate 25 mg 1 tablet PO BID 30 days Spironolactone 25 mg 1 tab PO daily Jardiance 10 mg PO daily Scheduled Amoxicillin & Pot Clavulanate (Augmentin Tablet), 875 MG PO BID Empagliflozin (Jardiance), 10 MG PO DAILY Ferrous Sulfate (Ferrous Sulfate), 1 TAB PO DAILY Labetalol Hcl (Labetalol Hcl), 300 MG PO BID, (Reported) Losartan Potassium (Losartan Potassium), 1 TAB PO DAILY Metoprolol Tartrate (Metoprolol Tartrate), 1 TAB PO BID Spironolactone (Spironolactone), 1 TAB PO DAILY Scheduled PRN Docusate Sodium (Docusate Sodium), 200 MG PO HS PRN Furosemide (Furosemide), 1 TAB PO DAILY PRN Ibuprofen Micronized (Motrin Tablet), 600 MG PO Q6HP PRN Discontinued Medications Hydrocodone-Acetaminophen ([place] 10/325MG), Q6HP, (Reported) Ondansetron (Zofran Odt), Q6HP, (Reported) Discharge Statement: "Patient was advised to return to the ER or call 911 if any headaches, dizziness, shortness of breath, chest pain, abdominal pain, bleeding, fevers, or worsening of medical condition. Patient was counseled about treatment plan, medications, possible side effects, patientverbalized understanding. All questions were answered to the best of my ability. This discharge took greater then 30 minutes in planning, reviewing documentation, counseling the patient, and discussing with other team members." ASSESSMENT ASSESSMENT Assessment Acute Peripartum Cardiomyopathy Date of Service: Sep 08, 2024 Billing Provider: JONATHAN BRIGHT MD Common Visit Codes: 22021-HNO/OBS DISCH DAY >30min DARYA CHARLES RESIDENT Sep 08, 2024 17:48 JONATHAN BRIGHT MD Sep 09, 2024 21:38
[2024-09-08] MEDS ORDERED: METO25TA5 PO (18:04)
[2024-09-08] MEDS ORDERED: EMPA1TAB PO (18:04)
[2024-09-08] MEDS ORDERED: SPIR25TA8 PO (18:04)
[2024-09-08] MEDS ORDERED: LOSA-533 PO (18:04)
[2024-09-08] MEDS ORDERED: FURO20TA3 PO (18:04)
[2024-09-08] MEDS ORDERED: MELATONIN 5 MG TAB PO ONE (22:00)
== END 2024-09-08 14:07 | disposition home or self-care (01) | DRG 776 ==
LOC: ER 09:49 → OVERFLOW 16:42 → TELE-WESTW 09-06 23:10
PROVIDERS: ADMIT Internal Medicine Geriatric Medicine; ATTEND Emergency Medicine
DX: O85 Puerperal sepsis (principal); J96.01 Acute respiratory failure with hypoxia; O90.3 Peripartum cardiomyopathy; I16.1 Hypertensive emergency; O86.20 Urinary tract infection following delivery, unspecified; I50.32 Chronic diastolic (congestive) heart failure; N39.0 Urinary tract infection, site not specified; I11.0 Hypertensive heart disease with heart failure; O99.215 Obesity complicating the puerperium; D53.9 Nutritional anemia, unspecified; E66.01 Morbid (severe) obesity due to excess calories; Z20.822 Contact with and (suspected) exposure to COVID-19; D25.9 Leiomyoma of uterus, unspecified; O99.285 Endocrine, nutritional and metabolic diseases complicating the puerperium; O90.81 Anemia of the puerperium; E78.1 Pure hyperglyceridemia; R93.89 Abnormal findings on diagnostic imaging of other specified body structures; E78.5 Hyperlipidemia, unspecified; O99.53 Diseases of the respiratory system complicating the puerperium; Z79.899 Other long term (current) drug therapy; Z88.5 Allergy status to narcotic agent; Z79.84 Long term (current) use of oral hypoglycemic drugs
CPT/HCPCS: 36415; 71045; 71275; 76856; 80048; 80053; 80061; 80076; 80307; 81001; 82306; 82607; 82728; 83036; 83540; 83550; 83605; 83735; 83880; 84443; 84484; 85025; 85379; 87040; 87081; 87086; 87426; 87804; 93005; 93306; 93970; 94640; 96365; 96375; 99291; G0378; J2543